=== PATIENT | male | born 1955 | race Caucasian/White ===

== ENCOUNTER 2016-10-05 23:00 | Inpatient (IN) ==
--- NOTE | 2016-10-05 23:48 | PROVIDER DOCUMENTATION ---
HPI-Chest Pain - General Source: patient - History of Present Illness-CP Location: reports: substernal Severity in ED: severe Onset/Duration: just prior to arrival Timing: still present Associated Symptoms: reports: shortness of breath, weakness. denies: abdominal pain, back pain, diaphoresis, dizziness, edema, fatigue, fever/chills, headache , heartburn, nausea, rash, syncope, vomiting Nitro Today/Relief: 0.4 mg x 3, provided by EMS Aspirin Treatment Today: 325 mg x 1, provided by EMS Prior Chest Pain/Cardiac Workup: reports: cardiac cath Similar Symptoms Previously?: Yes Recently Seen Here or By Another Healthcare Provider: Yes <Germain Oneill - Last Filed: 10/06/16 00:58> <Sage Ferreira - Last Filed: 10/06/16 01:12> - General Chief Complaint: Chest Pain Stated Complaint: CP, d/c from for NSTEMI yesterday Time Seen by Provider: 10/05/16 23:30 Allergies/Adverse Reactions: Patient Allergies Allergy/AdvReac Type Severity Reaction Status Date / Time No Known Allergies Allergy Verified 10/05/16 23:00 Home Medications: Home Medication List Medication Instructions Recorded Confirmed Last Taken Type Citalopram Hydrobromide [Celexa] 10 mg PO HS 04/24/13 10/05/16 07/31/15 21:00 History Insulin Glargine [Lantus] 50 unit SUBQ QHS 04/24/13 10/05/16 07/31/15 21:00 History Aspirin [Melvin Chewable Aspirin] 81 mg PO DAILY #0 tab.chew 04/01/14 10/05/16 09:00 Rx Atorvastatin Calcium [Lipitor] 80 mg PO BID 10/05/16 10/05/16 Unknown History Furosemide [Lasix] 40 mg PO DAILY 10/05/16 10/05/16 Unknown History Lisinopril [Zestril] 5 mg PO DAILY 10/05/16 10/05/16 Unknown History Metoprolol [Lopressor] 50 mg PO BID 10/05/16 10/05/16 Unknown History Polyethylene Glycol 3350 [Miralax] 1 pkg PO DIRECTED 10/05/16 10/05/16 Unknown History Tamsulosin [Flomax] 0.4 mg PO QHS 10/05/16 10/05/16 Unknown History - History of Present Illness-CP Nature of Presenting Problem: Pt is a 61 yom who presents to ER via EMS with CC of chest pain. Pt reports that he was discharged yesterday from [facility] for a non-STEMI, after being transferred there on the for a STEMI. Pt reports that, on exam , his pain is 7/10. (Germain Oneill) Review of Systems - Adult - REVIEW OF SYSTEMS - ADULT Constitutional: reports: fatique. denies: chills, fever, night sweats, weight gain, weight loss Eyes: reports: no symptoms reported Ears, Nose, Mouth & Throat: reports: no symptoms reported Cardiovascular: reports: chest pain. denies: edema, heart murmur, irregular heart rate, orthopnea, palpitations, poor circulation, PND, syncope Respiratory: reports: shortness of breath, wheezing. denies: chronic cough, cough, dyspnea on exertion, excessive sputum production, hemoptysis, pleurisy Gastrointestinal: reports: no symptoms reported Genitourinary: reports: no symptoms reported Musculoskeletal: reports: no symptoms reported Integumentary: reports: no symptoms reported Neurological: reports: no symptoms reported Psychiatric: reports: no symptoms reported Endocrine: reports: no symptoms reported Hematologic/Lymphatic: reports: no symptoms reported Allergic/Immunologic: reports: no symptoms reported All Other Systems: Reviewed and Negative <Germain Oneill - Last Filed: 10/06/16 00:58> Past History - Adult - PAST MEDICAL HISTORY-ADULT Review of Records: reports: Nursing Assessment Review, Medications Reviewed Cardiovascular: reports: CAD, HTN, heart valve problem, hyperlipidemia Respiratory: reports: bronchitis Genitourinary: reports: kidney stones Musculoskeletal: reports: arthritis Psychiatric: reports: anxiety, depression Endocrine/Immune: reports: Diabetes - PRIOR SURGERIES/PROCEDURES Surgical/Procedure History: reports: CABG, back/neck, other (pt had heart cath ) - IMMUNIZATION STATUS Childhood Immunizations: See Nurse Assessment Flu Vaccine: See Nurse Assessment <Germain Oneill - Last Filed: 10/06/16 00:58> Physical Exam-General - PHYSICAL EXAM-ADULT Initial Vital Signs Reviewed: Yes - CONSTITUTIONAL General Appearance: appears well, alert, moderate distress, lethargic, slow to respond. negative: no apparent distress, mild distress, severe distress, cachetic, obese, thin, anxious, obtunded, combative - RESPIRATORY Respiratory: chest non-tender, lungs clear, normal breath sounds, wheezing (mild ). negative: respiratory distress, decreased breath sounds, accessory muscle use - CARDIOVASCULAR Cardiovascular: normal peripheral pulses, regular rate, rhythm. negative: bradycardia, tachycardia, diastolic murmur, systolic murmur, irregularly irregular - GASTROINTESTINAL (ABDOMEN) Abdominal Exam: normal bowel sounds, non tender, soft. negative: distended, guarding, tenderness - NEUROLOGIC Neurologic: grossly normal, no motor/sensory deficits. negative: facial droop, focal weakness, motor weakness, sensory deficit - PSYCHIATRIC Psych/Mental Status: normal thought content, normal thought process, oriented x 3, disheveled, depressed affect <Germain Oneill - Last Filed: 10/06/16 00:58> Progress - EKG 1 Time of EKG reading by physician:: 21:32 EKG Read and Signed by:: Sage Ferreira EKG Interpretation (*Must complete 3 of following elements*): Abnormal (Low voltage QRS) Rate: 105 Rhythm: Sinus tachycardia 2 Time of EKG reading by physician:: 22:56 EKG Read and Signed by:: Sage Ferreira EKG Interpretation (*Must complete 3 of following elements*): Abnormal ( Rightward axis; Nonspecific ST & T wave abnormality) Rate: 94 Rhythm: Normal sinus rhythm - CONSULTS/PCP/HOSPITALIST Notification #1 *Consult/PCP/Hospitalist*: Dr. Alcaraz ([facility]) Time Discussed: 00:47 Consult Disposition: other (Recommended for Dr. Ferreira to admit pt here) #2 Consult: Dr. Yoo (Hospitalist) Time Discussed: 00:58 Consult Disposition: Admit <Germain Oneill - Last Filed: 10/06/16 00:58> <Sage Ferreira - Last Filed: 10/06/16 01:12> - PLAN OF CARE/RESULTS Progress/Plan/Lab Results: [facility] paged at [phone] [facility] recommended to admit pt for obs here. Vital Signs - 24 hr 10/05/16 23:06 Temperature 99.5 F Pulse Rate 94 H Respiratory 20 Rate Blood Pressure 112/76 O2 Sat by Pulse 94 L Oximetry Orders Category Date Time Status Cardiac Monitoring DIRECTED Care 10/05/16 23:16 Active Saline Loc NOW Care 10/05/16 23:16 Active CHEST-PORTABLE [RAD] Stat Exams 10/05/16 23:39 Taken CBC WITH ELECTRONIC DIFF [HEME] Stat Lab 10/05/16 23:11 Completed CK PROFILE [SP CHEM] Stat Lab 10/05/16 23:11 Completed COMPREHENSIVE METABOLIC PANEL [CHEM] Stat Lab 10/05/16 23:11 Completed D-DIMER [CHEM] Stat Lab 10/05/16 23:11 Completed MAGNESIUM [CHEM] Stat Lab 10/05/16 23:11 Completed PRO B-NATRIURETIC PEPTIDE Stat Lab 10/05/16 23:11 Completed PROTIME WITH INR [COAG] Stat Lab 10/05/16 23:11 Completed PTT [COAG] Stat Lab 10/05/16 23:11 Completed TROPONIN T Stat Lab 10/05/16 23:11 Completed Morphine Med 10/05/16 23:51 Discontinued 4 mg IV NOW ONE Nitroglycerin Med 10/05/16 23:51 Discontinued 1 inch TOP NOW ONE EKG [EKG] Stat Ther 10/05/16 22:50 Ordered Laboratory Tests 10/05/16 10/05/16 10/05/16 23:11 23:11 23:11 WBC 9.72 RBC 4.12 L Hgb 12.4 L Hct 37.7 L MCV 91.5 MCH 30.1 MCHC 32.9 L RDW Std Deviation 14.8 H Plt Count 265 MPV 12.7 H Immature Gran % (Auto) 0.3 Neut % (Auto) 63.3 Lymph % (Auto) 20.2 L [place] % (Auto) 15.1 H Eos % (Auto) 0.7 Baso % (Auto) 0.4 Immature Gran # (Auto) 0.03 Neut # (Auto) 6.15 Lymph # (Auto) 1.96 [place] # (Auto) 1.47 H Eos # (Auto) 0.07 Baso # (Auto) 0.04 PT INR PTT (Actin FS) D-Dimer 0.86 H Sodium 133 L Potassium 4.2 Chloride 94 L Carbon Dioxide 28 Anion Gap 11 BUN 20 Creatinine 0.9 Estimated GFR/1.73 m2 > 60 BUN/Creatinine Ratio 22 Glucose 296 H Calculated Osmolality 280 Calcium 8.4 L Magnesium 1.8 Total Bilirubin 0.38 AST 17 ALT 17 Alkaline Phosphatase 89 Creatine Kinase 63 Troponin T [id number]-Ffysogvzttq Pept Total Protein 6.0 L Albumin 2.9 L Globulin 3.1 Albumin/Globulin Ratio 0.9 10/05/16 10/05/16 10/05/16 23:11 23:11 23:11 WBC RBC Hgb Hct MCV MCH MCHC RDW Std Deviation Plt Count MPV Immature Gran % (Auto) Neut % (Auto) Lymph % (Auto) [place] % (Auto) Eos % (Auto) Baso % (Auto) Immature Gran # (Auto) Neut # (Auto) Lymph # (Auto) [place] # (Auto) Eos # (Auto) Baso # (Auto) PT 12.1 H INR 1.14 PTT (Actin FS) 29.7 D-Dimer Sodium Potassium Chloride Carbon Dioxide Anion Gap BUN Creatinine Estimated GFR/1.73 m2 BUN/Creatinine Ratio Glucose Calculated Osmolality Calcium Magnesium Total Bilirubin AST ALT Alkaline Phosphatase Creatine Kinase Troponin T 1.200 H* [id number] Pept 5655 H Total Protein Albumin Globulin Albumin/Globulin Ratio (Germain Oneill) Departure <Germain Oneill - Last Filed: 10/06/16 00:58> - Departure Time of Disposition Order: 01:11 Certified Medical Emergency: Emergent <Sage Ferreira - Last Filed: 10/06/16 01:12> - Departure DIAGNOSIS: Chest pain in adult Disposition: ADMITTED INPATIENT 09 Condition: Fair Attestation - Scribe Verification/Attestation Scribe:: Germain Oneill Acting as Scribe for:: Sage Ferreira Scribe documention review:: This chart was documented by a scribe and accurately reflects the service the provider performed and the decisions made by the provider. <Germain Oneill - Last Filed: 10/06/16 00:58> Physician Attestation
[2016-10-05] MEDS ORDERED: NITROGLYCERIN TOP ONE (23:51)
[2016-10-05] MEDS ORDERED: MORPHINE IV ONE (23:51)
[2016-10-06 00:29] LABS: MANUAL DIFF NEEDED? NO
[2016-10-06 00:31] LABS: BASO% 0.4 % (0.0-0.8); EOS# 0.07 X1000 (0.0-0.7); EOS% 0.7 % (0.0-10.0); HEMATOCRIT 37.7 % (42.0-52.0); HEMOGLOBIN 12.4 g/dL (14.0-18.0); IMM GRAN# 0.03 X1000 (0.0-0.04); IMM GRAN% 0.3 % (0.0-0.5); LYMPH# 1.96 X1000 (1.2-3.4); LYMPH% 20.2 % (20.5-51.1); MCH 30.1 PG (27-31); MCHC 32.9 g/dL (33-37); MCV 91.5 FL (81-99); MONO# 1.47 X1000 (0.11-0.59); MONO% 15.1 % (1.7-9.3); MPV 12.7 FL (7.4-10.4); NEUT% 63.3 % (42.2-75.2); PLT 265 X1000 (130-400); RBC 4.12 XMIL (4.7-6.1)
[2016-10-06 00:42] LABS: INR 1.14; PROTIME 12.1 Seconds (9.2-11.7); PTT 29.7 Seconds (22.0-36.0)
[2016-10-06 00:45] LABS: AGAP 11; ALBUMIN 2.9 g/dL (3.5-5.0); ALKALINE PHOSPHATASE 89 U/L (32-122); BUN 20 mg/dL (8-22); CALCIUM 8.4 mg/dL (8.8-10.2); CHLORIDE 94 mmol/L (98-107); CK PROFILE 63 U/L (24-204); COSMO 280; GOT 17 U/L (10-34); GPT 17 U/L (10-44); MAGNESIUM 1.8 mg/dL (1.5-2.7); POTASSIUM 4.2 mmol/L (3.5-5.1); SODIUM 133 mmol/L (136-145); TCO2 28 mmol/L (25-35); TOTAL BILIRUBIN 0.38 mg/dL (0.20-1.00)
[2016-10-06] MEDS ORDERED: LASIX IV ONE (01:28)
[2016-10-06] MEDS ORDERED: TYLENOL PO PRN (01:31)
[2016-10-06] MEDS ORDERED: PLAVIX PO ONE (01:34)
[2016-10-06] MEDS ORDERED: LOVENOX SUBQ SCH (01:45)
--- NOTE | 2016-10-06 04:12 | HISTORY AND PHYSICAL ---
CHIEF COMPLAINT: Chest pain. PRIMARY CARE PROVIDER: Sunil Vang MD. HISTORY OF PRESENT ILLNESS: This is a 61-year-old male who presented to the emergency room with complaint of chest pain. He was recently discharged from [facility] on Saturday, I believe, for non-STEMI. He complained of 7/10 left-sided chest pain that did not radiate into his neck, back, jaw or arm. He did not have any associated symptoms such as nausea and vomiting, syncope, PND, orthopnea. He did report mild shortness of breath after arriving to the emergency room and was noted as having wheezing on my assessment. Chest x-ray was obtained in the ER which shows increased pulmonary vascular markings consistent with fluid volume overload. Laboratory data was obtained. Patient's troponins were elevated. Dr. Rowley with the [facility] was contacted by the ER provider, Dr. Ferreira. He recommended admission here for his medications to be maximized. He will be admitted to CICU for further evaluation and treatment. PAST MEDICAL HISTORY: Obtained primarily from previous medical charting as the patient is a very poor historian. 1. Hypertension. 2. Coronary artery disease status post CABG in 2008 with recent myocardial infarction this previous week for which there was no stenting performed. 3. Diabetes mellitus type 2, now insulin dependent, poorly controlled. 4. Hyperlipidemia. 5. Chronic pain secondary to sternal incision from bypass. 6. Previous CVA. 7. Depression. PREVIOUS SURGICAL HISTORY: 1. CABG. 2. Cervical neck fusion. 3. Bilateral carotid endarterectomy. 4. Cardiac catheterization. SOCIAL HISTORY: Quit smoking in 2007. He was a 1 pack of cigarettes per day smoker for roughly 15 years. Denies illicit drug use or abuse or alcohol use. He is , lives in [place]. He is disabled. FAMILY HISTORY: Father is from congestive heart failure. Mother from cancer. A brother with myocardial infarction. ALLERGIES: No known drug allergies. HOME MEDICATIONS: 1. Lantus 50 units subcutaneously at bedtime. 2. Celexa 10 mg p.o. at bedtime. 3. Aspirin 81 mg p.o. daily. 4. Lipitor 80 mg p.o. daily. 5. Flomax 0.4 mg p.o. at bedtime. 6. MiraLAX 17 g p.o. p.r.n. 7. Lasix 40 mg p.o. daily. 8. Lisinopril 5 mg p.o. daily. 9. Metoprolol 50 mg p.o. b.i.d. REVIEW OF SYSTEMS: Fourteen point review of systems conducted with the patient. Pertinent positives listed above in the HPI. All other systems negative. PHYSICAL EXAMINATION: VITAL SIGNS: Temperature 99.5 degrees, pulse 94, respirations 20, blood pressure 112/76, oxygen saturation 94% on 4 L nasal cannula. GENERAL: Slow to respond 61-year-old male lying in the ER stretcher. No acute distress. HEENT: Head is atraumatic, normocephalic. Pupils equal, round, reactive to light. Extraocular eye movement intact. Sclerae is anicteric. Conjunctivae is pink. Oral mucosa is moist. NECK: Supple. No JVD noted. Scarring related to bilateral carotid endarterectomy was noted. No carotid bruit on auscultation. CHEST: Symmetrical rise and fall with respirations. Patient is mildly tachypneic. No accessory muscle use. Crackles noted in bilateral bases with mild expiatory wheezing. No rhonchi. No rales. CARDIOVASCULAR: S1, S2 appreciated. Regular rhythm. 1/6 systolic ejection murmur noted. ABDOMEN: Protuberant, soft, nondistended, nontender. Bowel sounds hypoactive all 4 quadrants. No pulsatile mass. No organomegaly could be palpated. EXTREMITIES: No clubbing, cyanosis, or edema. 1+ pedal pulses bilaterally. GENITOURINARY: The patient voids. Otherwise deferred. NEUROLOGICAL: Patient is slow to respond, however, answers all questions appropriately. He is alert and oriented x4. No focal deficits noted. DIAGNOSTIC DATA: Chest x-ray shows increased pulmonary vascular markings. LABORATORY DATA: WBC 9.72, hemoglobin 12.4, hematocrit 37.7, platelet count 265,000. PT 12.1, INR 1.14. D-dimer 0.86. Sodium 133, potassium 4.2, chloride 94, carbon dioxide 28, BUN 20, creatinine 0.9, glucose 296. Troponin 1.200. CK is 63. ProBNP 5655. ASSESSMENT AND PLAN: 1. Chest pain with elevated troponin. Admit patient to CICU. Consult Cardiology. Trend cardiac enzymes. Continue beta blockers, RODNEY inhibitor. Start patient on Plavix 75 mg p.o. daily. We will use aspirin 325 mg daily at this time as patient does not have a noted history of bleeding. 2. Pulmonary edema. Unsure of patient's ejection fraction. Medical charting has been requested from [facility] from previous admission. We will give Lasix 40 mg IV now and then continue 40 mg IV q.12 hours. 3. Diabetes mellitus type 2, now insulin dependent, poorly controlled. Place patient on q.4 hour fingersticks with sliding scale moderate dose. Check hemoglobin A1c. 4. Hyperlipidemia. Continue statin at current dose. 5. Coronary artery disease. We will maximize medications. 6. Depression. Continue SSRI. Further recommendations per patient clinical course. Dictated by JASON Levine for Leelee Yoo MD
[2016-10-06 06:48] LABS: HEMOGLOBIN A1C 11.3 % (4.8-6.0)
[2016-10-06] MEDS ORDERED: LASIX PO SCH (09:00)
[2016-10-06] MEDS ORDERED: ATORVASTATIN CALCIUM 80 MG PO SCH (09:00)
[2016-10-06] MEDS ORDERED: ASPIRIN PO SCH ×2 (09:00)
[2016-10-06] MEDS ORDERED: PRINIVIL PO SCH (09:00)
[2016-10-06] MEDS ORDERED: LOPRESSOR PO SCH (09:00)
[2016-10-06 10:05] LABS: AGAP 11; BUN 20 mg/dL (8-22); CALCIUM 7.7 mg/dL (8.8-10.2); CHLORIDE 94 mmol/L (98-107); COSMO 273; POTASSIUM 4.2 mmol/L (3.5-5.1); SODIUM 133 mmol/L (136-145); TCO2 28 mmol/L (25-35)
[2016-10-06] MEDS: HUMALOG SUBQ SCH ×3 (10:21→23:53)
--- NOTE | 2016-10-06 11:26 | Diag Imaging Result Document ---
PROCEDURE NAME: CHEST-PORTABLE - 10/05/2016 PORTABLE CHEST: COMPARISON: 03/29/2014. FINDINGS: There is mild cardiomegaly. There are sternal wires from previous surgery again seen. There is vascular congestion. There is alveolar edema at the right base and possibly at the left base. There are probable small bilateral pleural effusions. There is no pneumothorax seen. IMPRESSION: Findings suggestive of pulmonary edema/congestive heart failure.
[2016-10-06] MEDS: PLAVIX PO SCH (11:36)
[2016-10-06] MEDS: PRILOSEC PO SCH (11:38)
[2016-10-06] MEDS: LIPITOR PO SCH (13:07)
[2016-10-06] MEDS: LASIX IV SCH ×2 (13:07→20:32)
--- NOTE | 2016-10-06 14:45 | CONSULTATION ---
DATE OF CONSULTATION: 10/06/2016 REQUESTING SERVICE: Hospitalist service. REASON FOR CONSULTATION: Chest discomfort, shortness of breath. HISTORY: Mr. Epperson is an unfortunate 61-year-old gentleman who presented to the emergency room as a transfer from the [facility] where he had been staying for a couple of nights. The patient apparently started to complain of chest discomfort and also appeared to be more short of breath. They brought him to the ER at about 11:00 p.m. or so. They did a chest x-ray that showed pulmonary edema. They checked cardiac enzymes. CK was 63, troponin 1.20, subsequently 1.17. ProBNP was elevated at 5655. Sodium 133. Potassium was 4.2. His white count was 9720. They gave him Lasix, oxygen, and they have been admitted him for further management. I am seeing the patient about 12 noon. He is not having any distress. He is not having any ongoing chest pain. However, he is having audible wheezing. PAST MEDICAL HISTORY: His past history is significant for severe coronary heart disease. About 09/27/2016, he presented to the Emergency Room Department with significant chest pains. He had been there two days prior with complaints of body aches and not feeling well. At any rate, they made a diagnosis of acute coronary syndrome and they sent the patient to [place] that same day, 09/27/2016. He underwent an emergency heart catheterization at [facility] on 09/27/[address] Sunil Abad, which revealed a complete occlusion of a degenerated vein graft that appears to go to the lateral wall. His mammary artery graft to LAD was patent. His circumflex system was diffusely and severely diseased. Right coronary artery was totally occluded. An echocardiogram was done at that time, and it shows relatively preserved ejection fraction in the order of 45% to 50%. However, he has severe diastolic dysfunction noted on that particular echocardiogram. At any rate, they stabilized the patient for two or three days, and eventually they sent him to the rehabilitation facility for further management. He does have history of hypertension. He has had a previous stroke, and the stroke apparently was very disabling. Since then, he has had difficulties with speech. He became depressed. He had some weakness on the right side of his body. He also has diabetes mellitus type 2, which has not been well controlled. PAST SURGICAL HISTORY: Positive for previous coronary bypass procedure in 2008. He has had bilateral carotid endarterectomy performed at the [facility] in [place] during the course of the year 2015 or 2016. They did both carotids.Prior to doing the carotids they did a follow up [facility] which showed degenerated SVG to OM. He has had cervical fusion. SOCIAL HISTORY: He has been a smoker for many years, and he had been smoking lately up until the time of his recent heart attack. He is to his for about 20 years or so. He has children from a previous marriage. 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 He had to go on disability because of multiple body ailments. FAMILY HISTORY: Family history is really noncontributory for the purposes of this admission. ALLERGIES: Negative. HOME MEDICATIONS: His home medications listed at the time of this admission included aspirin 81 daily, atorvastatin 80 mg daily, Celexa 10 mg daily, furosemide 40 daily, insulin glargine, Lantus 50 units at bedtime, Zestril 5 mg daily, metoprolol 50 twice a day, MiraLAX one package as directed, and Flomax 0.4 mg at bedtime. REVIEW OF SYSTEMS: In general, his functional capacity is markedly impaired. He does not do much according to the . He appears to be depressed. His speech is very compromised at times. At other times, it appears to be adequate. He has had issues with some dyspnea in the past and wheezing. He has had intermittent bouts of chest pains over the course of the past few weeks. No other major positives. PHYSICAL EXAMINATION: Vital signs: Blood pressure is 93/65, temperature 98.3, pulse 81, respirations 18. General: He is awake, alert, oriented. HEENT: Unremarkable. He does have scars in both sides of the neck. Chest: Chest shows diminished breath sounds diffusely with end expiratory wheezes. Cardiovascular: Heart sounds are regular, rhythmic. No gallop or murmur. Abdomen: Obese, nontender. No masses or hepatomegaly. Extremities: Extremities show markedly diminished pulses bilaterally. Neurological exam: He has some low pitch voice with some subtle dysarthria. He lacks spontaneity in his speech. His mood is kind of depressed. I cannot elicit any definite weakness on either side of his body. LABORATORY: His chest x-ray shows pulmonary edema. His EKG showed no acute ischemic changes. IMPRESSION: 1. Patient presenting with increasing dyspnea and chest discomfort approximately 10 days after having a ase-HC-ifukzkeaf myocardial infarction. He has had progression of disease. 2. Acute pulmonary edema. This is cardiogenic and probably related to ischemic cardiomyopathy.Systolic + diastolic heart failure acute on chronic. He may have ischemic valvular heart disease contributing to this. 3. Previous carotid artery surgery bilaterally. Previous stroke. 4. Poorly controlled diabetes mellitus. His hemoglobin A1c is unfortunately 11.3, which is an indicator of poor control. 5. He might be nutritionally compromised. His albumin is 2.9. 6. History of hyperlipidemia. 7. Suspect depression. RECOMMENDATION: From cardiology view point, we are going to keep him on diuretics. We may want to add low-dose digoxin. We will probably consider low-dose RODNEY inhibitors. He will continue aspirin and lisinopril. His overall prognosis is very guarded because of his general poor functional status. Will follow him closely. ANGEL
[2016-10-06] MEDS: LOVENOX SUBQ SCH (15:39)
[2016-10-06] MEDS: LOPRESSOR PO SCH ×2 (15:39→20:33)
[2016-10-06] MEDS: LANOXIN IV SCH (20:32)
[2016-10-06] MEDS: CELEXA PO SCH (20:33)
[2016-10-06] MEDS: ALDACTONE PO SCH (20:33)
[2016-10-06] MEDS: CAPOTEN PO SCH (20:33)
[2016-10-06] MEDS: FLOMAX PO SCH (20:34)
[2016-10-06] MEDS ORDERED: COREG PO SCH (21:00)
[2016-10-06 21:08] LABS: URINE CULTURE NEEDED? NO; URINE MICRO REVIEW NEEDED? NO; URINE SOURCE CATH
[2016-10-06 21:12] LABS: BILIRUBIN URINE NEGATIVE (NEGATIVE); BLOOD URINE NEGATIVE (NEGATIVE); COLOR YELLOW; GLUCOSE URINE 500 mg/dL (NEGATIVE); LEUKOCYTES URINE NEGATIVE (NEGATIVE); NITRITE URINE NEGATIVE (NEGATIVE); PH URINE 5.5; PROTEIN URINE NEGATIVE (NEGATIVE); SP GRAVITY URINE 1.017; TURBIDITY URINE CLEAR (CLEAR); UROBILINOGEN URINE NORMAL (NORMAL)
[2016-10-06 21:13] LABS: UR EPITHELIAL CELLS <10 /HPF (<10); URINE BACTERIA NEGATIVE /HPF; URINE RBC <10 /HPF (<10); URINE WBC <10 /HPF (<10)
[2016-10-06] MEDS: LANTUS SUBQ SCH (23:53)
[2016-10-07] MEDS: HUMALOG SUBQ SCH ×7 (00:17→21:37)
[2016-10-07] MEDS: LOVENOX SUBQ SCH ×2 (03:38→15:52)
[2016-10-07] MEDS: LANOXIN IV SCH ×3 (03:38→15:52)
[2016-10-07] MEDS: LOPRESSOR PO SCH ×4 (03:39→21:36)
[2016-10-07 05:26] LABS: MANUAL DIFF NEEDED? NO
[2016-10-07 05:29] LABS: BASO% 0.4 % (0.0-0.8); EOS# 0.11 X1000 (0.0-0.7); EOS% 1.2 % (0.0-10.0); HEMATOCRIT 36.7 % (42.0-52.0); HEMOGLOBIN 11.8 g/dL (14.0-18.0); LYMPH# 1.95 X1000 (1.2-3.4); MCH 29.7 PG (27-31); MCHC 32.2 g/dL (33-37); MCV 92.4 FL (81-99); MONO# 1.34 X1000 (0.11-0.59); MONO% 14.4 % (1.7-9.3); MPV 11.6 FL (7.4-10.4); PLT 242 X1000 (130-400); RBC 3.97 XMIL (4.7-6.1)
[2016-10-07 06:01] LABS: AGAP 11; BUN 21 mg/dL (8-22); CALCIUM 8.2 mg/dL (8.8-10.2); CHLORIDE 94 mmol/L (98-107); COSMO 272; HDL 33 mg/dL (35-55); LDL 90 mg/dL; POTASSIUM 3.8 mmol/L (3.5-5.1); SODIUM 135 mmol/L (136-145); TCO2 30 mmol/L (25-35); TRIGLYCERIDES 55 mg/dL (39-160); VLDL 11 mg/dL
[2016-10-07] MEDS: PRILOSEC PO SCH (06:23)
[2016-10-07] MEDS: CAPOTEN PO SCH ×3 (06:23→21:36)
[2016-10-07] MEDS: LASIX IV SCH ×2 (08:08→21:35)
[2016-10-07] MEDS: PLAVIX PO SCH (08:08)
[2016-10-07] MEDS: ASPIRIN PO SCH (08:08)
[2016-10-07] MEDS: ALDACTONE PO SCH (08:08)
[2016-10-07] MEDS: LIPITOR PO SCH (08:08)
--- NOTE | 2016-10-07 09:55 | PROGRESS NOTE ---
DATE: 10/07/2016 CHIEF COMPLAINT: Shortness of breath, chest discomfort. SUBJECTIVE: Mr. Epperson is feeling generally better today. He is eating breakfast. He is not in any distress. OBJECTIVE: Blood pressure is 110/69, temperature 98.1, pulse 87, respirations 18. General: He is awake, alert, oriented, in no distress. HEENT: Slight prominence of the . Chest: Diffusely diminished breath sounds at the bases. No definite rhonchi or rales. Cardiac: Heart sounds are regular, rhythmic. He does have a 3rd heart sound. There is a soft systolic murmur. Abdomen: Obese, nontender. Extremities: Show no significant edema. He does have some weakness on the right side of his body. DIAGNOSTIC DATA: Blood work today, white count is 9290, hemoglobin 11.8, hematocrit 36.7, sodium 135, potassium 3.8, BUN 21, creatinine 0.8. His cholesterol total is 134, LDL 90, HDL is 33, triglycerides 55. IMPRESSION: 1. Patient presented with acute pulmonary edema secondary to systolic and diastolic heart failure. He does have progression of severe coronary heart disease. 2. History of previous stroke. 3. Hyperlipidemia. RECOMMENDATIONS: At this point in time, we will continue to adjust his medications. Clinically, he seems to be a little better. I will probably suggest to continue all the medicines as outlined yesterday. We have him on captopril 6.25 every 8 hours, digoxin 0.125 daily, spironolactone 12.5 daily, atorvastatin 80 daily, metoprolol 12.5 every 6 hours, aspirin 81 mg daily, clopidogrel 75 mg daily. Other interventions will depend on his clinical course. I will get a followup chest x-ray in the morning. Thank you for the opportunity to participate in this evaluation.
--- NOTE | 2016-10-07 11:17 | PROGRESS NOTE ---
DATE: 10/07/2016 SUBJECTIVE: The Patient denies any shortness of breath, any chest pain or chest discomfort, fever, or chills. OBJECTIVE: Vital Signs: Temperature 98.1 degrees, heart rate 82, respiratory rate 18, blood pressure 110/69, O2 saturation 94% on 3 L nasal cannula. General Examination: This is an chronically ill-looking and frail, 61-year-old, male, lying in bed, in no acute distress. HEENT: Head is normocephalic and atraumatic. Anicteric sclerae and pale conjunctivae. Mucous membranes moist. Neck: Supple. No JVD noted. No carotid bruits. No lymphadenopathy. No thyromegaly. Cardiovascular Examination: S1 and S2 heard. No murmurs, gallops, or rubs. Regular rate and rhythm. Respiratory Examination: Crackles in both bases still present. Patient is not using any accessory muscles or having work of breathing. Abdomen: Soft, nontender to palpation, nondistended. Bowel sounds present. No organomegaly. Extremities: No clubbing, cyanosis, or edema. Peripheral pulses present in both legs. Neurological Examination: Patient is alert and oriented x3 but is slow to respond. Moves 4 extremities. Laboratory Data: White cell count 9.29, hemoglobin 11.8, hematocrit 36.7, platelets 242,000. BMP unremarkable. Last troponin 1.3 from yesterday. ASSESSMENT: 1. Recent non-ST elevation myocardial infarction. 2. Systolic and diastolic congestive heart failure. 3. Acute pulmonary edema. 4. Uncontrolled diabetes mellitus type 2. 5. Hyperlipidemia. 6. Coronary artery disease. 7. Depression. PLAN: The patient was admitted to the hospital for episodes of chest pain. Patient recently discharged from [facility] for non ST-segment elevation myocardial infarction. At this time, the troponins started to go up again. Cardiology has been consulted. They are following this patient closely. At this point, the patient will receive medical management only. They are not planning to repeat catheterization but repeat echocardiogram. By now, he has been started on Lasix, captopril, metoprolol, spironolactone. The blood pressure is borderline between 100 and 110 systolic blood pressure but if the blood pressure started to go down, probably we may need to transfer him to the intensive care unit and start vasodepressor. Unfortunately, diabetes mellitus is really bad controlled with hemoglobin A1c of 11. Now we will continue with the sliding scale insulin. We will continue monitoring this patient very closely in the [facility].
[2016-10-07] MEDS: FLOMAX PO SCH (21:36)
[2016-10-07] MEDS: CELEXA PO SCH (21:36)
[2016-10-07] MEDS: LANTUS SUBQ SCH (21:37)
[2016-10-08] MEDS: HUMALOG SUBQ SCH ×6 (03:01→22:07)
[2016-10-08] MEDS: LOPRESSOR PO SCH ×4 (04:00→22:06)
[2016-10-08] MEDS: CAPOTEN PO SCH ×3 (04:00→22:05)
[2016-10-08] MEDS: LOVENOX SUBQ SCH ×2 (04:00→15:52)
[2016-10-08 05:45] LABS: AGAP 12; BUN 16 mg/dL (8-22); CALCIUM 8.3 mg/dL (8.8-10.2); CHLORIDE 94 mmol/L (98-107); COSMO 276; MAGNESIUM 1.7 mg/dL (1.5-2.7); SODIUM 137 mmol/L (136-145); TCO2 31 mmol/L (25-35)
[2016-10-08] MEDS: PRILOSEC PO SCH (06:16)
--- NOTE | 2016-10-08 09:15 | EKG Report ---
Test Performed on : 10/05/2016 10:56:09 PM Test Reason : CP Blood Pressure : / mmHG Vent. Rate : 094 BPM Atrial Rate : 094 BPM P-R Int : 138 ms QRS Dur : 094 ms QT Int : 350 ms P-R-T Axes : 046 097 102 degrees QTc Int : 437 ms Normal sinus rhythm. Rightward axis Nonspecific ST and T wave abnormality Abnormal ECG When compared with ECG of 05-OCT-2016 22:55, (Unconfirmed) QT has shortened Unconfirmed Result
[2016-10-08] MEDS: PLAVIX PO SCH (09:22)
[2016-10-08] MEDS: ASPIRIN PO SCH (09:22)
[2016-10-08] MEDS: LIPITOR PO SCH (09:22)
[2016-10-08] MEDS: ALDACTONE PO SCH (09:23)
[2016-10-08] MEDS: LANOXIN PO SCH (09:23)
[2016-10-08] MEDS: LASIX IV SCH ×2 (09:23→22:05)
[2016-10-08] MEDS: MIRALAX PO SCH (09:23)
--- NOTE | 2016-10-08 09:57 | Diag Imaging Result Document ---
PROCEDURE NAME: CHEST-2 VIEWS - 10/08/2016 TWO VIEWS OF THE CHEST: FINDINGS: There are pleural effusions bilaterally. The pulmonary edema which was present on 10/05/2016 has largely resolved. IMPRESSION: Bilateral pleural effusions.
--- NOTE | 2016-10-08 10:36 | EKG Report ---
Test Performed on : 10/08/2016 09:51:57 AM Test Reason : arrhythmia Blood Pressure : / mmHG Vent. Rate : 085 BPM Atrial Rate : 085 BPM P-R Int : 142 ms QRS Dur : 096 ms QT Int : 434 ms P-R-T Axes : 058 057 -24 degrees QTc Int : 516 ms Normal sinus rhythm. Low voltage QRS Nonspecific T wave abnormality Prolonged QT Abnormal ECG When compared with ECG of 05-OCT-2016 22:56, (Unconfirmed) QT has lengthened Confirmed by Jennifer MOREL, Cristian Cantu ([id number]) on 10/08/2016 4:27:26 PM
--- NOTE | 2016-10-08 10:37 | PROGRESS NOTE ---
DATE: 10/08/2016 CHIEF COMPLAINT: Shortness of breath, chest discomfort. SUBJECTIVE: Mr. Epperson is feeling somewhat better. He is not in any discomfort, he is just lying in bed. He appears to be somewhat depressed. OBJECTIVE: Blood pressure today is 113/66, temperature 98.9, pulse 84, respirations 12. He is awake, follows commands. HEENT is unremarkable. Chest: Clear to auscultation and percussion. Heart sounds are regular and rhythmic. No gallop or murmur is noted. Abdomen is nontender. Extremities showed no obvious edema. DIAGNOSTIC DATA: His blood work today shows sodium 137, potassium 4.0, BUN is 16, creatinine 0.7. IMPRESSION: 1. 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 2. Previous stroke. 3. Poorly controlled diabetes mellitus. RECOMMENDATIONS: At this point in time, we will continue supportive therapy. Chest x-ray has been requested. We will see what it shows, and we will take it from there. At this time, he is presently being treated with spironolactone, digoxin, captopril, aspirin and metoprolol. We will see how he does over the course of the next couple of days, and then we will make a decision as far as disposition.
--- NOTE | 2016-10-08 14:25 | PROGRESS NOTE ---
DATE: 10/08/2016 SUBJECTIVE: The patient reports no chest pain. No shortness of breath. No fever or chills. OBJECTIVE: Vital Signs: Temperature 98.9 degrees, heart rate 86, respiratory rate 12, blood pressure 113/66, O2 saturation 96% on 93% 3 L nasal cannula. General Examination: This is a chronically ill-looking frail 61-year-old male lying in bed in no acute distress. HEENT: Head is normocephalic, atraumatic. Anicteric sclerae and pale conjunctivae. Mucous membranes moist. Neck: Supple. No JVD noted. No carotid bruits. No lymphadenopathy. No thyromegaly. Cardiovascular Exam: S1-S2 heard, no murmurs, gallops, or rubs. Regular rate and rhythm. Respiratory Exam: Some crackles in both bases still present but less in compared with yesterday. Patient is not using any accessory muscles or having work of breathing. Abdomen: Soft, nontender to palpation. Bowel sounds present. No organomegaly. Extremities: No clubbing, cyanosis, or edema. Peripheral pulses present in both legs. Neurological: Patient is alert and oriented x3 but is slow to respond. Moves 4 extremities. LABORATORY DATA: The BMP is completely unremarkable. ASSESSMENT AND PLAN: 1. Recent non ST-segment elevation myocardial infarction. 2. Systolic and diastolic congestive heart failure. 3. Acute pulmonary edema. 4. Uncontrolled diabetes mellitus type 2. 5. Hyperlipidemia. 6. Coronary artery disease. 7. Depression. Patient had a recent non ST-segment elevation myocardial infarction 10 days ago in [facility] but he was admitted again to the hospital because of episode of chest pain. At this time cardiology has evaluated this patient and they started him on captopril, metoprolol, spironolactone and Lasix and by now he is doing fine. Patient's blood pressure is borderline between 90s and 110. Will continue with the same management. The patient getting Lasix for acute pulmonary edema. Also he will continue with the sliding scale insulin for diabetes mellitus. As per cardiology evaluation they are going to continue with medical management only and a couple days will check with them to see what is the final disposition with this patient that they recommend.
[2016-10-08] MEDS: ZOFRAN IV PRN (17:33)
[2016-10-08] MEDS: FLOMAX PO SCH (22:06)
[2016-10-08] MEDS: CELEXA PO SCH (22:06)
[2016-10-08] MEDS: LANTUS SUBQ SCH (22:08)
[2016-10-09] MEDS: HUMALOG SUBQ SCH ×6 (00:05→21:32)
[2016-10-09] MEDS: LOPRESSOR PO SCH ×4 (02:50→21:32)
[2016-10-09] MEDS: CAPOTEN PO SCH ×3 (05:18→21:32)
[2016-10-09] MEDS: LOVENOX SUBQ SCH ×2 (05:18→17:44)
[2016-10-09 05:43] LABS: AGAP 11; BUN 14 mg/dL (8-22); CALCIUM 8.7 mg/dL (8.8-10.2); CHLORIDE 92 mmol/L (98-107); COSMO 280; MAGNESIUM 1.6 mg/dL (1.5-2.7); POTASSIUM 4.1 mmol/L (3.5-5.1); SODIUM 137 mmol/L (136-145); TCO2 34 mmol/L (25-35)
[2016-10-09] MEDS: PRILOSEC PO SCH (06:05)
--- NOTE | 2016-10-09 07:41 | EKG Report ---
Test Performed on : 10/09/2016 06:34:23 AM Test Reason : arrhythmia Blood Pressure : / mmHG Vent. Rate : 080 BPM Atrial Rate : 080 BPM P-R Int : 150 ms QRS Dur : 094 ms QT Int : 468 ms P-R-T Axes : 052 037 -31 degrees QTc Int : 539 ms Normal sinus rhythm. Low voltage QRS Nonspecific T wave abnormality Abnormal ECG When compared with ECG of 08-OCT-2016 09:51, No significant change was found Confirmed by Jennifer MOREL, Cristian Cantu ([id number]) on 10/09/2016 5:23:45 PM
[2016-10-09] MEDS ORDERED: LANTUS SUBQ SCH (08:30)
[2016-10-09] MEDS: LASIX IV SCH ×2 (09:41→21:32)
[2016-10-09] MEDS: ALDACTONE PO SCH (09:42)
[2016-10-09] MEDS: ASPIRIN PO SCH (09:42)
[2016-10-09] MEDS: LANOXIN PO SCH (09:42)
[2016-10-09] MEDS: PLAVIX PO SCH (09:42)
[2016-10-09] MEDS: LIPITOR PO SCH (09:42)
--- NOTE | 2016-10-09 12:11 | PROGRESS NOTE ---
DATE: 10/09/2016 SUBJECTIVE: Patient reports no chest pain anymore. No fever no chills. No shortness of breath. No nausea or vomiting. OBJECTIVE: Vital Signs: Temperature 99.1 degrees, heart rate 92, respiratory rate 18, blood pressure 107/60, and O2 saturation 91% on 3 L nasal cannula. General Examination: This is a chronically ill-looking and frail, 61-year-old male, lying in bed in no acute distress. HEENT: Head is normocephalic, atraumatic. Anicteric sclerae and pale conjunctivae. Mucous membranes moist. Neck: No JVD noted. No carotid bruits. No lymphadenopathy. No thyromegaly. Cardiovascular exam: S1, S2 heard. No murmurs, gallops, or rubs. Regular rate and rhythm. Respiratory exam: Crackles in both bases still present, but improving in comparing with yesterday. Patient is not using any accessory muscles or having work of breathing. Abdomen: Soft, nontender to palpation. Bowel sounds present. No organomegaly. Extremities: No clubbing, cyanosis, or edema. Peripheral pulses present in both legs. Neurological exam: Patient is alert and oriented x3. Moves 4 extremities. LABORATORY DATA: There is BMP that shows glucose 200. ASSESSMENT: 1. Recent non ST-segment elevation myocardial infarction. 2. Systolic and diastolic congestive heart failure. 3. Acute pulmonary edema. 4. Controlled diabetes mellitus type 2. 5. Hyperlipidemia. 6. Coronary artery disease. 7. Depression. PLAN: The patient is admitted to the hospital because of chest pain. The patient had a recent non ST-segment elevation myocardial infarction ten days ago treated in [facility]. At this time, this patient clinically is doing fine with no chest pain. Cardiology has evaluated this patient and have started him on captopril, metoprolol, spironolactone and Lasix. Clinically as we mentioned before, he is doing fine. Blood pressure is most of the time between 100 and 110. We will continue with the same management. Clinically there are less crackles in both bases. We will continue with the same management. Regarding management of diabetes, glucose fasting is 200, so we will increase the dose of Lantus accordingly. Cardiology as we mentioned before is following, and they are going to let us know what we will do next between tomorrow and the day after depending on how this patient is doing. In the meantime, we will keep this patient in the [facility].
--- NOTE | 2016-10-09 16:28 | PROGRESS NOTE ---
DATE: 10/09/2016 CHIEF COMPLAINT: Chest discomfort and shortness of breath. SUBJECTIVE: Mr. Epperson is in better spirits today. He is not having any pain. His breathing is better. He is not talking very much. He is eating some lunch. OBJECTIVE: Vital signs: His blood pressure today is 107/60, temperature 99.1, pulse 92, and respirations 18. General: He is awake, alert, oriented, and in no distress. HEENT: Unremarkable. Respiratory: Chest is fairly clear to auscultation and percussion. Cardiovascular: Heart sounds are regular and rhythmic. No gallop or murmur. Gastrointestinal: His abdomen is nontender. No masses. No hepatomegaly. Extremities: The extremities show no edema. Blood work today reveals a sodium of 137, potassium 4.1, BUN 14, and creatinine 1.8. Magnesium is 1.6. IMPRESSION: 1. Patient who presented with increasing chest pain and dyspnea. He does have coronary artery disease, severe and progressive with occlusion of vein graft a few days ago. He was admitted to [facility] for that matter. 2. He does have congestive heart failure. This is a combination of systolic and diastolic heart failure. 3. Previous stroke. 4. Poorly controlled diabetes mellitus. RECOMMENDATION: We will continue to optimize his medical therapy. I am going to go up on the Capoten to 12.5 three times a day. We will optimize his magnesium level. We will see how he does. He seems to be getting better very gradually.
[2016-10-09] MEDS ORDERED: CORDARONE PO SCH (17:00)
[2016-10-09] MEDS: CELEXA PO SCH (21:31)
[2016-10-09] MEDS: FLOMAX PO SCH (21:32)
[2016-10-09] MEDS: ZOFRAN IV PRN (21:35)
[2016-10-10] MEDS: LOPRESSOR PO SCH ×3 (03:48→15:05)
[2016-10-10] MEDS: HUMALOG SUBQ SCH ×4 (05:08→12:23)
[2016-10-10] MEDS: CAPOTEN PO SCH ×2 (05:09→13:23)
[2016-10-10] MEDS: LOVENOX SUBQ SCH (05:10)
[2016-10-10] MEDS: PRILOSEC PO SCH (06:02)
[2016-10-10 06:23] LABS: AGAP 11; BUN 15 mg/dL (8-22); CALCIUM 8.9 mg/dL (8.8-10.2); CHLORIDE 92 mmol/L (98-107); COSMO 275; MAGNESIUM 1.7 mg/dL (1.5-2.7); POTASSIUM 3.5 mmol/L (3.5-5.1); SODIUM 138 mmol/L (136-145); TCO2 35 mmol/L (25-35)
--- NOTE | 2016-10-10 06:57 | EKG Report ---
Test Performed on : 10/10/2016 06:41:23 AM Test Reason : arrhythmia Blood Pressure : / mmHG Vent. Rate : 075 BPM Atrial Rate : 075 BPM P-R Int : 148 ms QRS Dur : 094 ms QT Int : 432 ms P-R-T Axes : 048 019 -04 degrees QTc Int : 482 ms Normal sinus rhythm. Nonspecific T wave abnormality Prolonged QT Abnormal ECG When compared with ECG of 09-OCT-2016 06:34, QT has shortened Confirmed by Jennifer MOREL, Cristian Cantu ([id number]) on 10/11/2016 9:28:38 AM
[2016-10-10] MEDS: LIPITOR PO SCH (08:34)
[2016-10-10] MEDS: MIRALAX PO SCH (08:34)
[2016-10-10] MEDS: LASIX IV SCH (08:34)
[2016-10-10] MEDS: ASPIRIN PO SCH (08:34)
[2016-10-10] MEDS: PLAVIX PO SCH (08:35)
[2016-10-10] MEDS: LANOXIN PO SCH (08:35)
[2016-10-10] MEDS: ZOFRAN IV PRN (12:14)
[2016-10-10] MEDS: ALDACTONE PO SCH (12:23)
--- NOTE | 2016-10-10 12:33 | DISCHARGE SUMMARY ---
ADMISSION DATE: 10/06/2016 DISCHARGE DATE: 10/10/2016 ADMISSION DIAGNOSES: 1. Chest pain with elevated troponin. 2. Pulmonary edema. 3. Diabetes mellitus poorly controlled. 4. Hyperlipidemia. 5. Coronary artery disease. 6. Depression. DISCHARGE DIAGNOSES: 1. Chest pain with elevated troponin. 2. Pulmonary edema. 3. Diabetes mellitus poorly controlled. 4. Hyperlipidemia. 5. Coronary artery disease. 6. Depression. CONSULTATIONS: With Dr. Gary Otero with Cardiology. DIAGNOSTIC PROCEDURES AND FINDINGS: Chest x-ray done on 10/05/2016 shows pulmonary edema, congestive heart failure. An EKG done on 10/05/2016 shows normal sinus rhythm with diffuse nonspecific ST and T abnormalities. Chest x-ray done on 10/08/2016 shows bilateral pleural effusions. EKG done on 10/08/2016 shows normal sinus rhythm with diffuse nonspecific ST and T abnormalities. EKG done on 10/10/2016 shows normal sinus rhythm with diffuse nonspecific abnormalities and ST and T segments. HOSPITAL COURSE: Mr. Epperson is a 61-year-old male who was recently discharged from [facility] a week prior to admission with non STEMI at which time, he was found to have occluded vein graft. He came to the ER with acute onset of left-sided chest pain which was nonradiating and not associated with the nausea, vomiting, syncope or orthopnea. He did report some shortness of breath with exertion and was noted to have wheezing on admission. Given his recent non STEMI, [facility] was called in the ER and they recommended the patient be admitted here for medication optimization. His laboratory data were again consistent with non ST-elevation [place]. Cardiology was consulted. They felt that medication optimization would be the patient's best course of action. Indeed, Dr. Otero modified his medications quite a bit and his pain began to subside. He was diuresed with improvement of his respiratory status, and pulmonary venous congestion. He did not have any significant events during his stay. We controlled his comorbidities well including pattern blood sugars and fingerstick blood glucose every 4 hours. His medications have been optimized and he has reached maximum benefit of inpatient hospitalization and is now stable for discharge back to [facility]. DISCHARGE MEDICATIONS: Citalopram 10 mg at bedtime, Lasix 40 mg daily, Lantus 50 units subcu at bedtime, MiraLAX 1 package p.o. daily. Flomax 0.4 mg at bedtime. Lipitor 80 mg daily. Aspirin 81 mg daily. Capoten 12.5 mg p.o. q.8 hours. Plavix 75 mg p.o. daily. Lanoxin 125 mcg p.o. daily. Metoprolol 12.5 mg p.o. q.6 hours. Aldactone 12.5 mg p.o. daily. DISCHARGE LABORATORY DATA: Sodium 138, potassium 3.5. Chloride 92, CO2 35, anion gap 11, BUN 15, creatinine 0.8, glucose 76, magnesium 1.7. Calcium 8.9. DISCHARGE PHYSICAL EXAMINATION: Chronically ill and frail appearing 61-year-old male, lying in hospital bed. No acute distress. HEENT: Head is atraumatic and normocephalic. His pupils are equal, round, and reactive to light. Oropharynx is clear. Oral mucosa is moist. Trachea is midline. No JVD. No carotid bruits. Chest: Very mild bibasilar crackles noted which has improved since admission. CV: Regular rate and rhythm. S1, S2 is noted. GI: Soft, nondistended, nontender. Bowel sounds are positive. Extremities: No clubbing, cyanosis or edema is noted. DISCHARGE DIET: Diabetic. DISCHARGE ACTIVITY: Resume activity as tolerated. DISPOSITION AND OTHER DISCHARGE INSTRUCTIONS: Patient is discharged to [facility] for continued health care. He is to continue medical management under their care, continue all medications as prescribed. He is to follow up with his automatic nailing machine operator in the next week to 2 weeks or sooner if needed. We have instructed him to return to the ER or call 911 for any worsening complaints or concerns. All questions have been answered. DISCHARGE TIME: Greater than 35 minutes. Dictated by JASON Spangler for Aniket Escobar MD
--- NOTE | 2016-10-10 13:45 | PALLIATIVE CARE CONSULTATION ---
DATE: 10/10/2016 REQUESTING PHYSICIAN: Dr. Escobar. REASON FOR CONSULTATION: Goals of care related to Mr. Epperson's severe coronary artery disease. HISTORY OF PRESENT ILLNESS: This is a 61-year-old male with a past medical history of severe coronary artery disease, congestive heart failure, hypertension, diabetes mellitus type 2, hyperlipidemia, chronic pain syndrome, previous CVA, and depression. He was most recently admitted on 10/06/2016 after presenting to the emergency department with complaints of left-sided chest pain. It was also reported that he was discharged just a few days prior to this admission from [facility] for the same complaint. Currently Mr. Epperson is lying in the hospital bed. He is not very talkative but agrees to answer some questions regarding his goals of care. He denies pain, shortness of breath, nausea. He does complain of depression. He states that he sees a physician in [place] for his depression but he is unsure of who. He has no family at the bedside. The palliative care team has been consulted to assist with goals of care. REVIEW OF SYSTEMS: Twelve point review of system has been conducted and otherwise negative except those mentioned in the HPI. PAST MEDICAL HISTORY: See HPI. PAST SURGICAL HISTORY: 1. CABG. 2. Cervical neck fusion. 3. Bilateral carotid endarterectomy. 4. Cardiac catheterization. SOCIAL HISTORY: Past tobacco use. Alcohol and drug use denied. He is . He is disabled. FAMILY HISTORY: Positive for coronary artery disease and congestive heart failure. PHYSICAL EXAMINATION: General: This is a 61-year-old male who does not appear to be in any acute distress. HEENT: Atraumatic, normocephalic. Neck: Supple. Cardiovascular: Normal S1, S2 with murmur. Pulmonary: Lung sounds are diminished. Respirations are nonlabored. Abdomen: Soft. Bowel sounds are active. Extremities: Pulses are palpable. Skin: Warm and dry. IMPRESSION: This is a 61-year-old male with a past medical history as listed above in the HPI. The palliative care team was consulted to assist in goals of care related to Mr. Epperson severe coronary artery disease. As previously mentioned, Mr. Epperson agreed to answer questions regarding his goals care. However, he was not very talkative during the consultation. He did say that I could call and speak with his , who the nurse navigator contacted but she is unable to make a visit at this time. I will continue to attempt to contact her to see if we can identify any outpatient needs and to identify Mr. Epperson's goals of care. Mr. Epperson did state that he does not have an advanced directive or power of corporate associate attorney. He did request blank copies of those forms which were given. At this time Mr. Epperson is a full code. As previously mentioned, he does not have any acute complaints, nor does he appear in any kind of distress. The palliative care team will continue to follow daily until discharge. Thank you for this consultation. Dictated by JASON Sierra for Ronni Lovett MD
[2016-10-10 13:59] VITALS: BP 134/72
== END 2016-10-10 16:27 | DRG 280 ==
LOC: EDBD → ED 23:00 → EDIPHOLD 10-06 01:37 → 3S 10-06 11:28
PROVIDERS: ATTEND Internal Medicine
DX: I21.4 Non-ST elevation (NSTEMI) myocardial infarction (principal); I50.41 Acute combined systolic (congestive) and diastolic (congestive) heart failure; E11.65 Type 2 diabetes mellitus with hyperglycemia; I69.951 Hemiplegia and hemiparesis following unspecified cerebrovascular disease affecting right dominant side; Z95.1 Presence of aortocoronary bypass graft; I69.998 Other sequelae following unspecified cerebrovascular disease; I25.10 Atherosclerotic heart disease of native coronary artery without angina pectoris; R47.9 Unspecified speech disturbances; I10 Essential (primary) hypertension; E78.5 Hyperlipidemia, unspecified; F32.9 Major depressive disorder, single episode, unspecified; Z79.899 Other long term (current) drug therapy; Z79.82 Long term (current) use of aspirin; Z79.4 Long term (current) use of insulin; Z87.891 Personal history of nicotine dependence; Z82.49 Family history of ischemic heart disease and other diseases of the circulatory system; Z80.9 Family history of malignant neoplasm, unspecified
CPT/HCPCS: 71010; 71020; 80048; 80053; 80061; 81001; 82550; 82948; 83036; 83735; 83880; 84484; 85025; 85379; 85610; 85730; 93005; 93010; 94761; 96372; 96374; 96375; J1160; J1650; J1815; J1940; J2270; J2405; 97530-GP

== ENCOUNTER 2016-11-14 07:11 | Inpatient (IN) ==
[2016-11-14] MEDS ORDERED: LASIX IV ONE (07:48)
[2016-11-14 08:09] LABS: MANUAL DIFF NEEDED? NO
[2016-11-14 08:13] LABS: BASO% 0.6 % (0.0-0.8); EOS# 0.11 X1000 (0.0-0.7); EOS% 1.7 % (0.0-10.0); HEMATOCRIT 40.6 % (42.0-52.0); HEMOGLOBIN 13.2 g/dL (14.0-18.0); LYMPH# 2.27 X1000 (1.2-3.4); LYMPH% 35.2 % (20.5-51.1); MCHC 32.5 g/dL (33-37); MCV 89.2 FL (81-99); MONO# 0.75 X1000 (0.11-0.59); MONO% 11.6 % (1.7-9.3); MPV 11.5 FL (7.4-10.4); NEUT% 50.9 % (42.2-75.2); PLT 196 X1000 (130-400); RBC 4.55 XMIL (4.7-6.1)
[2016-11-14 08:19] LABS: ALLEN TEST NO; BE 8.4 mmoll (-3.0-3.0); BLOOD TYPE ARTERIAL; DRAW SITE L BRACHIAL; METHB 1.5 % (0.0-1.5); O2(CT) 17.1 mL/dL (15.0-23.0); PCO2(98.6) 50 mmHg (35-45); PO2(98.6) 83 mmHg (60-100); SAMPLE BLOOD; SAO2 99.2 % (95.0-100.0); THB 12.8 g/dL (11.5-17.4); pH(98.6) 7.44 (7.35-7.45)
[2016-11-14 08:20] LABS: MODALITY CANNULA
[2016-11-14] MEDS ORDERED: DUONEB (A & A) INH ONE (08:23)
[2016-11-14] MEDS ORDERED: SOLU-MEDROL IV ONE (08:23)
--- NOTE | 2016-11-14 08:23 | PROVIDER DOCUMENTATION ---
HPI-Respiratory General - General Chief Complaint: Wheezing Stated Complaint: upper back pain cp Time Seen by Provider: 11/14/16 07:32 Source: patient, family Allergies/Adverse Reactions: Patient Allergies Allergy/AdvReac Type Severity Reaction Status Date / Time No Known Allergies Allergy Verified 10/05/16 23:00 Home Medications: Home Medication List Medication Instructions Recorded Confirmed Last Taken Type Citalopram Hydrobromide [Celexa] 10 mg PO HS 04/24/13 11/14/16 10/18/16 21:00 History Furosemide [Lasix] 40 mg PO DAILY 10/05/16 11/14/16 10/19/16 08:00 History Tamsulosin [Flomax] 0.4 mg PO QHS 10/05/16 11/14/16 10/18/16 21:00 History ATORVAstatin [Lipitor] 80 mg PO DAILY #0 tablet 10/10/16 11/14/16 10/19/16 08: 00 Rx Clopidogrel [Plavix] 75 mg PO DAILY #30 tablet 10/10/16 11/14/16 10/19/16 08:00 Rx Digoxin [Lanoxin] 125 microgm PO DAILY #30 tablet 10/10/16 11/14/16 10/19/16 08: 00 Rx Spironolactone [Aldactone] 12.5 mg PO DAILY #30 tablet 10/10/16 11/14/16 08:00 Rx Metoprolol Succinate E.r. [Toprol 25 mg PO BID #30 tablet 10/25/16 11/14/16 Unknown Rx Xl] Captopril 12.5 mg PO DAILY 11/14/16 11/14/16 Unknown History Oxycodone HCl 15 mg PO PRN PRN 11/14/16 11/14/16 Unknown History Oxymorphone HCl 7.5 mg PO PRN PRN 11/14/16 11/14/16 Unknown History - History of Present Illness-Resp Nature of Presenting Problem: SOB since last night. Pt is on 2L home O2 for CHF and FL with EF=20%. Was at rehab recently due to an FL. Currently on medication management of his FL. Denies F/C/N/V, but SOB. Mild non-productive cough. Quality of Pain: reports: none Severity in ED: reports: moderate Onset/Duration: reports: last night Timing: reports: still present Context: denies: recent foreign travel Exposure: denies: unknown cause Cough Quality/Degree: reports: no cough Episode Frequency: no prior episodes Modifying Factors: improves with: nothing Associated Symptoms: reports: denies symptoms, shortness of breath, short of breath. denies: cough, facial pain, fever/chills, flu-like symptoms, heart racing, wheezing Similar Symptoms Previously?: Yes Recently seen or treated by another doctor?: No Review of Systems - Adult - REVIEW OF SYSTEMS - ADULT Constitutional: reports: no symptoms reported Eyes: reports: no symptoms reported Ears, Nose, Mouth & Throat: reports: no symptoms reported Cardiovascular: reports: see HPI. denies: chest pain Respiratory: reports: see HPI, cough, dyspnea on exertion, shortness of breath. denies: wheezing Gastrointestinal: reports: no symptoms reported Genitourinary: reports: no symptoms reported Musculoskeletal: reports: no symptoms reported Integumentary: reports: no symptoms reported Neurological: reports: no symptoms reported Psychiatric: reports: no symptoms reported Endocrine: reports: no symptoms reported Hematologic/Lymphatic: reports: no symptoms reported Allergic/Immunologic: reports: no symptoms reported All Other Systems: Reviewed and Negative Past History - Adult - PAST MEDICAL HISTORY-ADULT Review of Records: reports: Old Records Reviewed, Nursing Assessment Review, Medications Reviewed Major Childhood Illnesses: reports: denies history Cardiovascular: reports: CAD, HTN, heart valve problem, hyperlipidemia Respiratory: reports: bronchitis Gastrointestinal: reports: denies history Obstetrical/Gynecological: reports: denies history Genitourinary: reports: kidney stones Musculoskeletal: reports: arthritis Neurological: reports: CVA Psychiatric: reports: anxiety, depression Endocrine/Immune: reports: Diabetes Other Conditions: reports: denies history - PRIOR SURGERIES/PROCEDURES Surgical/Procedure History: reports: CABG, cardiac stent (2), back/neck, other ( pt had heart cath 04/17 ) - PRIOR HOSPITALIZATIONS Prior Hospitalizations: reports: none - IMMUNIZATION STATUS Childhood Immunizations: See Nurse Assessment Flu Vaccine: See Nurse Assessment - FAMILY HISTORY Family History: reviewed, not pertinent Physical Exam-General - PHYSICAL EXAM-ADULT Initial Vital Signs Reviewed: Yes - CONSTITUTIONAL General Appearance: appears well, alert, no apparent distress - EYES Eyes: PERRL/EOMI, pink conjunctivae - HEAD, EARS, NOSE, MOUTH & THROAT HENMT: normocephalic/atraumatic, moist mucous membranes, normal ENT inspection, TMs normal, pharynx normal - NECK Neck: non-tender, full range of motion, supple, normal inspection - RESPIRATORY Respiratory: chest non-tender, normal breath sounds, no pleuratic chest pain, no respiratory distress, no accessory muscle use, decreased breath sounds, accessory muscle use, rhonchi, wheezing. negative: crackles, rales, decreased rate, increased rate - CARDIOVASCULAR Cardiovascular: normal peripheral pulses, regular rate, rhythm, no edema, no gallop, no JVD, no murmur - GASTROINTESTINAL (ABDOMEN) Abdominal Exam: normal bowel sounds, non tender, soft, no organomegaly, no pulsatile mass - LYMPHATIC Lymphatic: no adenopathy - MUSCULOSKELETAL Back Exam: normal inspection, no CVA tenderness, no vertebral tenderness Extremity: normal range of motion, non-tender, normal gait, normal inspection, no pedal edema, no calf tenderness, normal capillary refill, pelvis stable - SKIN Integumentary: normal color, normal turgor, warm/dry - 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, no motor/sensory deficits - PSYCHIATRIC Psych/Mental Status: normal mood/affect, normal thought content, normal thought process, oriented x 3 Progress - PLAN OF CARE/RESULTS Progress/Plan/Lab Results: Vital Signs - 8 hr 11/14/16 07:21 11/14/16 07:28 11/14/16 07:35 Temperature 98.0 F Pulse Rate 96 H 98 H Respiratory Rate 22 24 Blood Pressure 122/95 122/95 O2 Sat by Pulse Oximetry 97 96 11/14/16 08:55 11/14/16 08:57 11/14/16 09:20 Temperature Pulse Rate 94 H 94 H 92 H Respiratory Rate 24 22 20 Blood Pressure 122/95 123/86 O2 Sat by Pulse Oximetry 97 95 94 L 11/14/16 10:10 11/14/16 11:00 11/14/16 13:06 Temperature Pulse Rate 96 H 92 H 98 H Respiratory Rate 15 20 25 H Blood Pressure 125/87 188/86 111/75 O2 Sat by Pulse Oximetry 93 L 95 92 L Laboratory Results - last 24 hr 11/14/16 11/14/16 11/14/16 07:52 07:52 07:52 WBC 6.44 RBC 4.55 L Hgb 13.2 L Hct 40.6 L MCV 89.2 MCH 29.0 MCHC 32.5 L RDW Std Deviation 15.5 H Plt Count 196 MPV 11.5 H Immature Gran % (Auto) 0.0 Neut % (Auto) 50.9 Lymph % (Auto) 35.2 Murray % (Auto) 11.6 H Eos % (Auto) 1.7 Baso % (Auto) 0.6 Immature Gran # (Auto) 0.00 Neut # (Auto) 3.27 Lymph # (Auto) 2.27 Murray # (Auto) 0.75 H Eos # (Auto) 0.11 Baso # (Auto) 0.04 PT INR PTT (Actin FS) D-Dimer 0.46 Specimen Type Sample Site pH pCO2 pO2 HCO3 Base Excess Oxyhemoglobin ABG O2 Sat (Calculated) ABG O2 Saturation ABG Carboxyhemoglobin ABG Methemoglobin Cristian Test Total Hemoglobin Lactate Liter Flow Blood Gas Modality Sodium 139 Potassium 3.4 L Chloride 94 L Carbon Dioxide 30 Anion Gap 15 BUN 14 Creatinine 0.7 Estimated GFR/1.73 m2 > 60 BUN/Creatinine Ratio 20 Glucose 329 H Calculated Osmolality 291 Calcium 9.2 Magnesium 1.3 L Total Bilirubin 0.75 AST 10 ALT 9 L Alkaline Phosphatase 71 Creatine Kinase 28 Troponin T Jme-P-Vfndkgwhnle Pept Total Protein 7.0 Albumin 3.3 L Globulin 3.7 Albumin/Globulin Ratio 0.9 Urine Source Urine Color Urine Turbidity Urine pH Ur Specific Osprey Urine Protein Ur Glucose (Stick) Ur Ketones (Stick) Urine Blood Urine Nitrite Urine Bilirubin Urobilinogen Dipstick Urine Leukocytes Urine WBC (Auto) Urine RBC (Auto) U Epithel Cells (Auto) Urine Bacteria (Auto) 11/14/16 11/14/16 11/14/16 07:52 07:52 07:52 WBC RBC Hgb Hct MCV MCH MCHC RDW Std Deviation Plt Count MPV Immature Gran % (Auto) Neut % (Auto) Lymph % (Auto) Murray % (Auto) Eos % (Auto) Baso % (Auto) Immature Gran # (Auto) Neut # (Auto) Lymph # (Auto) Murray # (Auto) Eos # (Auto) Baso # (Auto) PT 11.7 INR 1.11 PTT (Actin FS) 25.8 D-Dimer Specimen Type Sample Site pH pCO2 pO2 HCO3 Base Excess Oxyhemoglobin ABG O2 Sat (Calculated) ABG O2 Saturation ABG Carboxyhemoglobin ABG Methemoglobin Cristian Test Total Hemoglobin Lactate Liter Flow Blood Gas Modality Sodium Potassium Chloride Carbon Dioxide Anion Gap BUN Creatinine Estimated GFR/1.73 m2 BUN/Creatinine Ratio Glucose Calculated Osmolality Calcium Magnesium Total Bilirubin AST ALT Alkaline Phosphatase Creatine Kinase Troponin T 0.228 H Ivq-[id number]-Oqkrcqlafsr Pept 4351 H Total Protein Albumin Globulin Albumin/Globulin Ratio Urine Source Urine Color Urine Turbidity Urine pH Ur Specific Osprey Urine Protein Ur Glucose (Stick) Ur Ketones (Stick) Urine Blood Urine Nitrite Urine Bilirubin Urobilinogen Dipstick Urine Leukocytes Urine WBC (Auto) Urine RBC (Auto) U Epithel Cells (Auto) Urine Bacteria (Auto) 11/14/16 11/14/16 11/14/16 08:15 08:19 10:19 WBC RBC Hgb Hct MCV MCH MCHC RDW Std Deviation Plt Count MPV Immature Gran % (Auto) Neut % (Auto) Lymph % (Auto) Murray % (Auto) Eos % (Auto) Baso % (Auto) Immature Gran # (Auto) Neut # (Auto) Lymph # (Auto) Murray # (Auto) Eos # (Auto) Baso # (Auto) PT INR PTT (Actin FS) D-Dimer Specimen Type ARTERIAL Sample Site L BRACHIAL pH 7.44 pCO2 50 H pO2 83 HCO3 31.4 H Base Excess 8.4 H Oxyhemoglobin 94.8 L ABG O2 Sat (Calculated) 17.1 ABG O2 Saturation 99.2 ABG Carboxyhemoglobin 3.00 H ABG Methemoglobin 1.5 Cristian Test NO Total Hemoglobin 12.8 Lactate 1.40 Liter Flow 2.0 Blood Gas Modality CANNULA Sodium Potassium Chloride Carbon Dioxide Anion Gap BUN Creatinine Estimated GFR/1.73 m2 BUN/Creatinine Ratio Glucose Calculated Osmolality Calcium Magnesium Total Bilirubin AST ALT Alkaline Phosphatase Creatine Kinase 27 Troponin T Irf-S-Gishzrztrel Pept Total Protein Albumin Globulin Albumin/Globulin Ratio Urine Source CLEAN CATCH Urine Color YELLOW Urine Turbidity CLEAR Urine pH 5.5 Ur Specific Osprey 1.013 Urine Protein NEGATIVE Ur Glucose (Stick) >1000 A Ur Ketones (Stick) NEGATIVE Urine Blood NEGATIVE Urine Nitrite NEGATIVE Urine Bilirubin NEGATIVE Urobilinogen Dipstick NORMAL Urine Leukocytes NEGATIVE Urine WBC (Auto) <10 Urine RBC (Auto) <10 U Epithel Cells (Auto) <10 Urine Bacteria (Auto) NEGATIVE 11/14/16 10:19 WBC RBC Hgb Hct MCV MCH MCHC RDW Std Deviation Plt Count MPV Immature Gran % (Auto) Neut % (Auto) Lymph % (Auto) Murray % (Auto) Eos % (Auto) Baso % (Auto) Immature Gran # (Auto) Neut # (Auto) Lymph # (Auto) Murray # (Auto) Eos # (Auto) Baso # (Auto) PT INR PTT (Actin FS) D-Dimer Specimen Type Sample Site pH pCO2 pO2 HCO3 Base Excess Oxyhemoglobin ABG O2 Sat (Calculated) ABG O2 Saturation ABG Carboxyhemoglobin ABG Methemoglobin Cristian Test Total Hemoglobin Lactate Liter Flow Blood Gas Modality Sodium Potassium Chloride Carbon Dioxide Anion Gap BUN Creatinine Estimated GFR/1.73 m2 BUN/Creatinine Ratio Glucose Calculated Osmolality Calcium Magnesium Total Bilirubin AST ALT Alkaline Phosphatase Creatine Kinase Troponin T 0.214 H Yiw-A-Iyrgtluawiw Pept Total Protein Albumin Globulin Albumin/Globulin Ratio Urine Source Urine Color Urine Turbidity Urine pH Ur Specific Osprey Urine Protein Ur Glucose (Stick) Ur Ketones (Stick) Urine Blood Urine Nitrite Urine Bilirubin Urobilinogen Dipstick Urine Leukocytes Urine WBC (Auto) Urine RBC (Auto) U Epithel Cells (Auto) Urine Bacteria (Auto) Orders Category Date Time Status Cardiac Monitoring DIRECTED Care 11/14/16 07:48 Active Oxygen Therapy- ED Nursing DIRECTED Care 11/14/16 07:48 Active Saline Loc NOW Care 11/14/16 07:48 Active cardiac diet [Heart Healthy Diet] Diet 11/14/16 13:08 Active CHEST-PORTABLE [RAD] Stat Exams 11/14/16 07:[address] THORAX W/O CONTRAST [CT] Stat Exams 11/14/16 14:25 Ordered ABG [RESP] Routine Lab 11/14/16 08:15 Completed BLOOD CULTURE [BLDCUL] Stat Lab 11/14/16 08:13 Results CBC WITH ELECTRONIC DIFF [HEME] Stat Lab 11/14/16 07:52 Completed CK PROFILE [SP CHEM] Stat Lab 11/14/16 07:52 Completed CK PROFILE [SP CHEM] Stat Lab 11/14/16 10:19 Completed COMPREHENSIVE METABOLIC PANEL [CHEM] Stat Lab 11/14/16 07:52 Completed D-DIMER [CHEM] Stat Lab 11/14/16 07:52 Completed MAGNESIUM [CHEM] Stat Lab 11/14/16 07:52 Completed PRO B-NATRIURETIC PEPTIDE Stat Lab 11/14/16 07:52 Completed PROTIME WITH INR [COAG] Stat Lab 11/14/16 07:52 Completed PTT [COAG] Stat Lab 11/14/16 07:52 Completed TROPONIN T Stat Lab 11/14/16 07:52 Completed TROPONIN T Stat Lab 11/14/16 10:19 Completed UA NIMS W/REFLEX CULT [URINALYSIS] Stat Lab 11/14/16 08:19 Completed Albuterol 2.5MG/Ipratrop 0.5MG [Duoneb (A & A)] Med 11/14/16 08:23 Discontinued 3 ml INH NOW ONE Furosemide [Lasix] Med 11/14/16 07:48 Discontinued 80 mg IV NOW ONE Meropenem [Merrem] 1 gm Med 11/14/16 14:21 Discontinued 0.9% Sodium Chloride Inj [Ns] 50 ml IV NOW Methylprednisolone Sod Succ [Solu-Medrol] Med 11/14/16 08:23 Discontinued 125 mg IV NOW ONE Potassium Chloride E.r. [Klor-Con] Med 11/14/16 09:38 Discontinued 40 meq PO NOW ONE Aerosol Treatments Routine Oth 11/14/16 08:24 Completed Aerosol Treatments Stat Oth 11/14/16 08:24 Completed EKG [EKG] Stat Ther 11/14/16 07:48 Draft Result Diagrams: 11/14/16 07:52 11/14/16 07:52 - REASSESSMENT Reassessment #1 Time Reassessed: 10:37 Status: improving (Pt is doing much better. 500 CC UOP and feels much better. Awaiting for 2nd set Trop and will go home is no change. Pt's and pt agrees with the plan. Pt r/o Lasix and requesting a prescription.) - CONSULTS/PCP/HOSPITALIST Notification Time Discussed: 14:40 Reason/Comments: dmit to Dr. Rueda Consult Disposition: Admit Departure - Departure Time of Disposition Decision: 14:39 DIAGNOSIS: CHF (congestive heart failure) Qualifiers: Congestive heart failure type: unspecified congestive heart failure type Congestive heart failure chronicity: acute on chronic Qualified Code(s): I50.9 - Heart failure, unspecified Pneumonia Qualifiers: Pneumonia type: due to unspecified organism Lung location: unspecified part of lung Disposition: ADMITTED INPATIENT 09 Certified Medical Emergency: Emergent Condition: Stable Referrals and Follow-Ups: None,PCP [Primary Care Provider] -
[2016-11-14 08:24] LABS: INR 1.11; PROTIME 11.7 Seconds (9.2-11.7); PTT 25.8 Seconds (22.0-36.0)
--- NOTE | 2016-11-14 08:47 | Diag Imaging Result Document ---
PROCEDURE NAME: CHEST-PORTABLE - 11/14/2016 PORTABLE UPRIGHT CHEST: COMPARISON: 10/21/2016. FINDINGS: Poor inspiratory effort. Sternal wires are present. There are increased interstitial markings throughout both lungs. Questionable small right pleural effusion. IMPRESSION: Pneumonia versus congestive failure.
[2016-11-14 09:12] LABS: URINE CULTURE NEEDED? NO; URINE MICRO REVIEW NEEDED? NO; URINE SOURCE CLEAN CATCH
[2016-11-14 09:15] LABS: AGAP 15; ALBUMIN 3.3 g/dL (3.5-5.0); ALKALINE PHOSPHATASE 71 U/L (32-122); BUN 14 mg/dL (8-22); CALCIUM 9.2 mg/dL (8.8-10.2); CHLORIDE 94 mmol/L (98-107); CK PROFILE 28 U/L (24-204); COSMO 291; GOT 10 U/L (10-34); GPT 9 U/L (10-44); MAGNESIUM 1.3 mg/dL (1.5-2.7); POTASSIUM 3.4 mmol/L (3.5-5.1); SODIUM 139 mmol/L (136-145); TCO2 30 mmol/L (25-35); TOTAL BILIRUBIN 0.75 mg/dL (0.20-1.00)
[2016-11-14 09:17] LABS: BILIRUBIN URINE NEGATIVE (NEGATIVE); BLOOD URINE NEGATIVE (NEGATIVE); COLOR YELLOW; GLUCOSE URINE >1000 mg/dL (NEGATIVE); LEUKOCYTES URINE NEGATIVE (NEGATIVE); NITRITE URINE NEGATIVE (NEGATIVE); PH URINE 5.5; PROTEIN URINE NEGATIVE (NEGATIVE); SP GRAVITY URINE 1.013; TURBIDITY URINE CLEAR (CLEAR); UROBILINOGEN URINE NORMAL (NORMAL)
[2016-11-14 09:21] LABS: UR EPITHELIAL CELLS <10 /HPF (<10); URINE BACTERIA NEGATIVE /HPF; URINE RBC <10 /HPF (<10); URINE WBC <10 /HPF (<10)
[2016-11-14] MEDS ORDERED: KLOR-CON PO ONE (09:38)
--- NOTE | 2016-11-14 09:46 | EKG Report ---
Test Performed on : 11/14/2016 07:57:25 AM Test Reason : Chest Pain Blood Pressure : / mmHG Vent. Rate : 094 BPM Atrial Rate : 094 BPM P-R Int : 160 ms QRS Dur : 094 ms QT Int : 372 ms P-R-T Axes : 065 024 -81 degrees QTc Int : 465 ms Normal sinus rhythm. Low voltage QRS Nonspecific T wave abnormality Prolonged QT Abnormal ECG When compared with ECG of 19-OCT-2016 12:27, No significant change was found Unconfirmed Result
[2016-11-14] MEDS ORDERED: MERREM 1 GM in NS 50 ML IV ONE (14:21)
--- NOTE | 2016-11-14 15:21 | Diag Imaging Result Document ---
PROCEDURE NAME: CT THORAX W/O CONTRAST - 11/14/2016 CT CHEST: A CT dose reduction protocol was used. COMPARISON: 10/21/2016. FINDINGS: There are moderate pleural effusions similar to prior. There is some slight interstitial pulmonary edema similar to prior. There is some scattered atelectasis similar to prior. No new or focal infiltrates. Stable CABG changes. Stable small stones or sludge in the gallbladder. Extensive degenerative changes of the spine. No acute or destructive bony lesions. IMPRESSION: No change from prior. Pulmonary edema, cardiomegaly, and moderately large pleural effusions. [facility]
[2016-11-14] MEDS ORDERED: MAGNESIUM SULFATE 4 GM/S.W.I. 4 GM/100 ML IVPB IV ONE (15:46)
[2016-11-14] MEDS ORDERED: ZOFRAN IV PRN (15:57)
[2016-11-14] MEDS ORDERED: TYLENOL PO PRN (15:57)
[2016-11-14] MEDS ORDERED: OXYMORPHONE HCL PO PRN (15:57)
[2016-11-14] MEDS ORDERED: OXY IR PO PRN (15:57)
--- NOTE | 2016-11-14 17:55 | HISTORY AND PHYSICAL ---
PRIMARY CARE PROVIDER: Dr. Sunil Vang. CHIEF COMPLAINT: Wheezing and shortness of breath. HISTORY OF PRESENT ILLNESS: Mr. Epperson is a 61-year-old male with a history of recent acute MD that was non-STEMI, hypertension, diabetes mellitus type 2, history of stroke, who apparently has been wearing home O2 2 L for congestive heart failure versus COPD. He comes in complaining of shortness of breath since last night despite wearing his 2 L of home oxygen. He describes it as wheezing. He just recently got discharged from [facility] on Saturday secondary to his weakness after his non-STEMI. He states he has a nonproductive cough and denies having a fever or chills. He denies any blood in his urine or stool. Chest x-ray showed CHF versus pneumonia and chest CT showed pulmonary edema; cardiomegaly; and moderately large bilateral pleural effusions. He received 80 of Lasix in the ER. We will continue with 40 of Lasix twice daily. We will need to consider possible thoracentesis. PAST MEDICAL HISTORY: Hypertension, coronary artery disease status post CABG in 2008. Recent NSTEMI with no interventions, diabetes mellitus type 2, hyperlipidemia, chronic pain secondary to sternal incision from bypass surgery, CVA, depression, COPD with home O2 at 2 L , systolic and diastolic congestive heart failure with EF of 35-40%. SURGICAL HISTORY: CABG, cervical neck fusion, bilateral carotid endarterectomies, left heart catheterization. SOCIAL HISTORY: Quit smoking in 2007. One pack per day smoker for 15 years prior to that. Denies alcohol or illicit drug use. Lives with his . Had a recent discharge from [facility] on Saturday and is disabled. FAMILY HISTORY: Father from congestive heart failure. Mother from cancer. Brother from myocardial infarction. ALLERGIES: No known drug allergies. HOME MEDICATIONS: Lipitor 80 mg p.o. daily. Captopril 12.5 mg p.o. daily. Celexa 10 mg p.o. nightly. Plavix 75 mg p.o. daily. Digoxin 125 mcg p.o. daily. Lasix 40 mg p.o. daily. Metoprolol 25 mg p.o. twice daily. Oxycodone 15 mg p.o. as needed. Oxymorphone 7.5 mg p.o. as needed. Aldactone 12.5 mg p.o. daily. Flomax 0.4 mg p.o. nightly. PHYSICAL EXAMINATION: VITAL SIGNS: Temperature 98.0 degrees, heart rate 91, respiratory rate 16, blood pressure 124/83, O2 saturation 95% on room air. GENERAL: Mr. Epperson is a 61-year-old male, he is in no acute distress. He is able to answer questions appropriately. HEENT: Atraumatic normocephalic. Pupils equal, round, reactive to light. Extraocular movements intact. Mucous membranes are moist. NECK: No JVD or carotid bruits noted. CARDIOVASCULAR: S1, S2. Regular rate and rhythm. No rubs, gallops, murmurs. PULMONARY: Clear to auscultate. Decreased in the bases with some mild expiratory wheezes. GI: Soft, nontender, nondistended. Positive bowel sounds x4. NEURO: Oriented x3. Moves all extremities equally. LABORATORY DATA: White blood cells 6000, hemoglobin 13, hematocrit 40, platelet count 196,000. INR 1.11. D-dimer 0.46. PH 7.44, pCO2 50, PO2 83, bicarb 31. Lactate 1.4. Sodium 139, potassium 3.4, BUN 14, creatinine 0.7, glucose 329. Magnesium 1.3. Bilirubin 0.75. AST 10, ALT 9. CK 27, troponin 0.2. ProBNP 4351. Urinalysis greater than 1000 glucose. IMAGING: Chest x-ray, pneumonia versus congestive heart failure with pulmonary edema. The chest CT, pulmonary edema and cardiomegaly but moderately large pleural effusions that is similar to a prior. CT. EKG, normal sinus rhythm, rate 94, QTc is 465. No ST elevations. ASSESSMENT AND PLAN: 1. Acute on chronic systolic diastolic congestive heart failure with large bilateral pleural effusions causing shortness of breath. He received 80 of Lasix IV in the ER. Will receive 40 of Lasix IV twice daily. Last ejection fraction was 35-40%. Cardiology Consult. 2. COPD. Continue 2 L nasal cannula. CO2 is elevated at 50 but this seems to be stable. We will go ahead and do IV steroids and inhaled nebulizers with prophylactic antibiotic as the patient's chest x-ray showed possible pneumonia. 3. Possible pneumonia. See #2. 4. Bilateral Large Pleural Effusions. Plan for Thoracentesis soon. 5. Coronary artery disease with recent NSTEM and Chronic troponinemia. Continue medical management. 5. Diabetes mellitus II. Continue with sliding scale insulin. Pattern blood glucoses. 6. Hyperlipidemia. Continue statin. 7. Depression. 8. CVA history. 9. Hypertension history. Continue medications. 10. Deep venous thrombosis prophylaxis with recent DVT. Hold Plavix for now d/ t need of thoracentesis. 11. Chronic pain syndrome. Continue home medications. 12. BPH. Continue home medications. 13. Hypomagnesemia. Will give IV magnesium replacement. Dictated by JASON Pitts for Aniket Escobar MD cc: MD Aniket Mccauley MD MTDD
[2016-11-14] MEDS: HUMULIN R SUBQ SCH ×2 (19:14→20:36)
[2016-11-14] MEDS: PULMICORT INH SCH (19:42)
[2016-11-14] MEDS: DUONEB (A & A) INH SCH ×2 (19:43→22:56)
[2016-11-14] MEDS: TOPROL XL PO SCH (20:36)
[2016-11-14] MEDS: CELEXA PO SCH (20:36)
[2016-11-14] MEDS: FLOMAX PO SCH (20:36)
[2016-11-14] MEDS: SOLU-MEDROL IV SCH (20:36)
[2016-11-14] MEDS: ROCEPHIN 1 GM/NS 1 GM/50 ML IVPB IV SCH (20:37)
[2016-11-15] MEDS: DUONEB (A & A) INH SCH ×6 (02:57→23:11)
[2016-11-15 05:14] LABS: MANUAL DIFF NEEDED? NO
[2016-11-15 05:24] LABS: HEMATOCRIT 37.5 % (42.0-52.0); LYMPH# 1.29 X1000 (1.2-3.4); LYMPH% 18.9 % (20.5-51.1); MCH 28.6 PG (27-31); MCV 89.5 FL (81-99); MONO# 0.51 X1000 (0.11-0.59); MONO% 7.5 % (1.7-9.3); NEUT% 73.6 % (42.2-75.2); PLT 187 X1000 (130-400); RBC 4.19 XMIL (4.7-6.1)
[2016-11-15 05:44] LABS: AGAP 12; ALKALINE PHOSPHATASE 64 U/L (32-122); BUN 19 mg/dL (8-22); CALCIUM 8.5 mg/dL (8.8-10.2); CHLORIDE 96 mmol/L (98-107); COSMO 296; GOT 6 U/L (10-34); GPT 6 U/L (10-44); POTASSIUM 4.2 mmol/L (3.5-5.1); SODIUM 140 mmol/L (136-145); TCO2 32 mmol/L (25-35)
[2016-11-15] MEDS: SOLU-MEDROL IV SCH ×2 (06:14→17:19)
[2016-11-15] MEDS: PROTONIX PO SCH (06:14)
[2016-11-15] MEDS: HUMULIN R SUBQ SCH ×4 (06:14→20:02)
[2016-11-15] MEDS: PULMICORT INH SCH (07:34)
[2016-11-15] MEDS: LASIX IV SCH ×2 (08:31→20:00)
[2016-11-15] MEDS: ALDACTONE PO SCH (08:31)
[2016-11-15] MEDS: LANOXIN PO SCH (08:31)
[2016-11-15] MEDS: TOPROL XL PO SCH ×2 (08:32→20:00)
[2016-11-15] MEDS: CAPOTEN PO SCH (08:32)
[2016-11-15] MEDS: LIPITOR PO SCH (08:32)
[2016-11-15 08:33] LABS: HEMOGLOBIN A1C 9.4 % (4.8-6.0)
[2016-11-15] MEDS ORDERED: PLAVIX PO SCH (09:00)
[2016-11-15] MEDS: LANTUS SUBQ SCH (09:29)
[2016-11-15] MEDS ORDERED: MORPHINE IV PRN (11:32)
--- NOTE | 2016-11-15 13:14 | CONSULTATION ---
DATE OF CONSULTATION: 11/15/2016 INDICATION: Shortness of breath, acute heart failure. HISTORY OF PRESENT ILLNESS: Mr. Epperson is a 61-year-old white male with a history of ischemic cardiomyopathy and stroke. Apparently, he had a recent hospitalization in October 2016, at which time he was treated for congestive heart failure. He re-presented roughly 5 days after discharge from rehabilitation with worsening shortness of breath. The patient is an extremely poor historian with limited participation in the history. He does not think that he has missed any medications, nor does he think that there has been any sodium or fluid indiscretion in his diet. He is not complaining of any shortness of breath or chest pain presently. He is lying in bed quietly, occasionally eating his meal. Again, minimal interaction with the examiner. PAST MEDICAL HISTORY: 1. Hypertension. 2. Ischemic cardiomyopathy with most recent ejection fraction of 35% to 40%. He had a recent hospitalization at [facility] in September 2016, at which point he had severe disease throughout the circumflex and occluded vein graft to the obtuse marginal, patent internal mammary artery. 3. Diabetes mellitus. 4. Chronic pain. 5. Stroke. 6. Depression. 7. Chronic obstructive pulmonary disease with home oxygen therapy. SOCIAL HISTORY: He quit smoking in 2007 and denies any alcohol or illicit drugs. Lives with his . FAMILY HISTORY: His father from congestive heart failure. Mother from unknown type of cancer. REVIEW OF SYSTEMS: A 10-system review of systems is negative except for those things mentioned in the HPI. PHYSICAL EXAMINATION: Vital Signs: He is afebrile. Heart rate of 105, blood pressure 103/64. His I's and O's thus far for the hospitalization appear negative around 700 mL. General: No acute distress. HEENT: Oropharynx is moist. Poor dentition. Eye examination shows pink conjunctivae, white sclerae. Neck: Examination shows no obvious thyromegaly or thyroid tenderness. Cardiovascular: He sounds to be in a regular rate and rhythm. He has no obvious murmurs. There is no S3. He has no lower extremity edema. Lungs: His chest examination has some reduced breath sounds noted bilaterally in the bases. No increased work of breathing. Abdomen: Soft, nontender, nondistended. No obvious organomegaly. Skin: Warm and dry throughout, without any rashes. Neurological: He is not really participating with the examination. Psychiatric: He has a somewhat flat affect. Again, very minimal interaction. PERTINENT DATA: His CT scan of his chest demonstrated pulmonary edema, cardiomegaly, and moderately large pleural effusions. His EKG showed sinus rhythm. He had nonspecific ST and T- wave changes. Rate was 94 beats per minute. His data shows white count of 6.8, hematocrit 37.5, platelet count 187,000. His sodium is 140, potassium 4.2. His BUN is 19, creatinine 0.8. His albumin level is 3.0. His troponin is 0.214. Notably, during his entire hospitalization last month his troponin ranged between 0.637 and 1.2. His troponin here has been very flat at 0.214 and 0.228, respectively. Digitalis level was 0.5. ASSESSMENT: Acute systolic heart failure. PLAN: Patient has very limited blood pressure to work with to titrate his medications. I would continue him on his current medications as they are ordered. He has Lasix ordered 40 mg IV b.i.d. I agree with the plan for thoracentesis. cc: Jhony Segundo MD
--- NOTE | 2016-11-15 14:37 | PROGRESS NOTE ---
DATE: 11/15/2016 SUBJECTIVE: Patient reports feeling better. Less shortness of breath. No fever or chills. OBJECTIVE: Vital Signs: Temperature 97.7 degrees, heart rate 105, respiratory rate 18, blood pressure 103/64, O2 saturation 95% 2 L nasal cannula. General Examination: This is a 61-year- old, looking older than his age, male, lying in bed, in no acute distress. HEENT: Head is normocephalic, atraumatic. Anicteric sclerae and pale conjunctivae. Mucous membranes moist. Neck: Supple. No JVD noted. No carotid bruits. No lymphadenopathy. No thyromegaly. Cardiovascular: S1, S2 heard. No murmurs, gallops, or rubs. Regular rate and rhythm. Respiratory: Clear bilaterally to auscultation. No work of breathing or using accessory muscles. There was some mild expiratory wheezing and crackles in both bases. There are decreased breath sounds in the left side of the thorax. GI: Abdomen is soft, nontender to palpation. Bowel sounds present. No organomegaly. Extremities: No clubbing, cyanosis, or edema. Peripheral pulses present in both legs. Neurological: Patient alert and oriented x3. Able to move 4 extremities. Cranial nerves 2-12 grossly normal. LABORATORY DATA: White cell count 6.81, hemoglobin 12.0, hematocrit 37.5, platelets 187,000. BMP unremarkable except glucose 363. ASSESSMENT/PLAN: 1. Acute systolic CHF. The patient has received 80 mg of Lasix IV in the ER, and we have continued with Lasix 40 IV b.i.d. We will continue with the same management. Cardiology has been consulted. We will follow their recommendations. 2. Left pleural effusion. According to the CT of the chest done yesterday it looks like this patient had a moderate to large pleural effusion. Plan today Dr. Hays is going to help us performing pleural thoracentesis. 3. COPD. Patient is on 2 L nasal cannula at home so we are going to continue with DuoNeb every 4 hours as scheduled. We suspected initially pneumonia but the CT of the chest did not show any infiltrate. 4. Diabetes mellitus. That is bad controlled. We are going to start Lantus 25 units daily and will continue checking BMP and Accu-Cheks. 5. Hyperlipidemia. We will continue with statin. 6. Depression. We are going to continue with home medications. 7. Hypertension. Blood pressure is now under control. We will continue with same management. 8. History of CVA. Stable. 9. Benign prostatic hypertrophy. Stable. We will continue with the same management. cc: Aniket Escobar MD
[2016-11-15 17:15] LABS: DIFF NEEDED? YES; SPECIMEN PLEURAL FLUID; WBC BF 468 /cumm
[2016-11-15 17:28] LABS: MONOS 74 %; POLYS 26 %
[2016-11-15 17:39] LABS: TOTAL PROT BODY FLUID 2.1 g/dL
--- NOTE | 2016-11-15 19:10 | Diag Imaging Result Document ---
PROCEDURE NAME: CHEST-PORTABLE - 11/15/2016 PORTABLE CHEST COMPARISON: 11/22/16 FINDINGS: No postprocedural pneumothorax. Sternal wires are present. Pulmonary edema is less pronounced. There is a small right effusion which remains. The heart remains enlarged. IMPRESSION: No postprocedural pneumothorax.
--- NOTE | 2016-11-15 19:59 | ECHO REPORT ---
ORDER DATE: 11/15/2016 INTERPRETING PHYSICIAN: Dr. Otero CLINICAL INDICATIONS: [id number]-old male, myocardial infarction recently, congestive heart failure. FINDINGS: This is a limited study. 1. There is no pericardial effusion. 2. The left ventricular chamber is moderately to significantly dilated. There is mild global impairment of the systolic function, ejection fraction estimated in the range of 45 to 50% with akinesis of the basal to mid inferior wall and significant impairment of the posterior wall. 3. The right ventricle is not significantly enlarged. The pulmonic valve appears to be grossly normal. Color flow mapping indicates mild degree of regurgitation. The tricuspid valve shows mild degree of regurgitation. The pulmonary pressure is estimated at 48 mmHg. Aortic valve has three cusps. They open normally. Color flow mapping unremarkable. Mitral valve shows mild to moderate degree of regurgitation. There is a left pleural effusion. There is calcification of mitral annulus. There is apparently a pseudo-normal pattern of mitral inflow. This may indicate significant diastolic dysfunction. SUMMARY: This study showed: 1. No pericardial effusion. 2. Moderately enlarged left ventricle with mild global impairment of systolic function, ejection fraction 45% to 50%, with akinesis of inferior wall and significant impairment of the posterolateral segment. 3. Mild to moderate degree of mitral regurgitation. 4. Mild degree of tricuspid regurgitation, pulmonary pressure of 48 mmHg. A pleural effusion is noted. Clinical correlation is recommended. cc: MD Lani Miller PA
[2016-11-15] MEDS: CELEXA PO SCH (20:00)
[2016-11-15] MEDS: ROCEPHIN 1 GM/NS 1 GM/50 ML IVPB IV SCH (20:00)
[2016-11-15] MEDS: FLOMAX PO SCH (20:02)
--- NOTE | 2016-11-15 21:42 | OPERATIVE NOTE ---
PROCEDURE DATE: 11/15/2016 INDICATION: Pleural effusion. PROCEDURE NOTE: This is a 61-year-old male with a large bilateral effusion right and left who comes in for symptomatic dyspnea. Time-out performed. Patient consents for procedure. He underwent local anesthetic after sterile field was dressed with 1% lidocaine. A catheter was passed without difficulty. We got 1400 mL of dark yellow fluid, which was clear, not opaque, sent for studies. No complications during the procedure. Chest x-ray is pending. cc: Mk Hays MD
[2016-11-16] MEDS: DUONEB (A & A) INH SCH ×6 (03:37→23:14)
[2016-11-16] MEDS: SOLU-MEDROL IV SCH ×2 (05:03→17:01)
[2016-11-16 05:50] LABS: AGAP 12; ALKALINE PHOSPHATASE 61 U/L (32-122); BUN 28 mg/dL (8-22); CALCIUM 8.4 mg/dL (8.8-10.2); CHLORIDE 97 mmol/L (98-107); COSMO 291; GOT 8 U/L (10-34); GPT 6 U/L (10-44); LDH 154 U/L (135-225); POTASSIUM 4.1 mmol/L (3.5-5.1); SODIUM 138 mmol/L (136-145); TCO2 29 mmol/L (25-35); TOTAL BILIRUBIN 0.39 mg/dL (0.20-1.00); TOTAL PROTEIN 6.3 g/dL (6.3-8.3)
[2016-11-16] MEDS: PROTONIX PO SCH (06:04)
[2016-11-16] MEDS: HUMULIN R SUBQ SCH ×2 (06:04→11:15)
[2016-11-16] MEDS: LASIX IV SCH (08:27)
[2016-11-16] MEDS: CAPOTEN PO SCH (08:28)
[2016-11-16] MEDS: LANOXIN PO SCH (08:28)
[2016-11-16] MEDS: LANTUS SUBQ SCH (08:28)
[2016-11-16] MEDS: ALDACTONE PO SCH (08:28)
[2016-11-16] MEDS: TOPROL XL PO SCH ×2 (08:28→20:04)
[2016-11-16] MEDS: LIPITOR PO SCH (08:28)
[2016-11-16 09:30] LABS: AGAP 11; BUN 29 mg/dL (8-22); CALCIUM 8.6 mg/dL (8.8-10.2); CHLORIDE 95 mmol/L (98-107); COSMO 296; POTASSIUM 4.3 mmol/L (3.5-5.1); SODIUM 139 mmol/L (136-145); TCO2 33 mmol/L (25-35)
[2016-11-16] MEDS ORDERED: LANTUS SUBQ ONE (15:05)
[2016-11-16] MEDS ORDERED: LANTUS SUBQ SCH (15:06)
[2016-11-16] MEDS: HUMALOG SUBQ SCH ×2 (16:02→20:04)
[2016-11-16] MEDS: CELEXA PO SCH (20:04)
[2016-11-16] MEDS: ROCEPHIN 1 GM/NS 1 GM/50 ML IVPB IV SCH (20:04)
[2016-11-16] MEDS: FLOMAX PO SCH (20:04)
[2016-11-17] MEDS: DUONEB (A & A) INH SCH ×6 (05:19→22:51)
[2016-11-17 05:45] LABS: AGAP 11; BUN 29 mg/dL (8-22); CALCIUM 8.6 mg/dL (8.8-10.2); CHLORIDE 94 mmol/L (98-107); COSMO 289; POTASSIUM 4.4 mmol/L (3.5-5.1); SODIUM 136 mmol/L (136-145); TCO2 31 mmol/L (25-35)
[2016-11-17] MEDS: PROTONIX PO SCH (06:14)
[2016-11-17] MEDS: SOLU-MEDROL IV SCH (06:14)
[2016-11-17] MEDS: HUMALOG SUBQ SCH ×4 (06:19→21:22)
--- NOTE | 2016-11-17 06:40 | PROGRESS NOTE ---
DATE: 11/16/2016 SUBJECTIVE: Patient reports feeling better. Less short of breath after the procedure. No fever or chills. OBJECTIVE: Vital Signs: Temperature 97.6 degrees, heart rate 78, respiratory rate 20, blood pressure 97/55, O2 saturation 96% on 2 L nasal cannula. General Examination: This is a 61-year- old, looking older than his age, male, lying in bed, in no acute distress. HEENT: Head is normocephalic, atraumatic. Anicteric sclerae, pale conjunctivae. Mucous membranes moist. Neck: Supple. No JVD noted. No carotid bruits. No lymphadenopathy. No thyromegaly. Cardiovascular: S1, S2 heard. No murmurs, gallops, or rubs. Regular rate and rhythm. Respiratory: Decreased breath sounds in the right side of base. Patient is not using any accessory muscles or having work of breathing. Abdomen: Soft, nontender to palpation. Bowel sounds present. No organomegaly. Extremities: No clubbing, cyanosis, or edema. Peripheral pulses present in both legs. Neurological: Patient is alert and oriented x3. Able to move 4 extremities. Cranial nerves 2-12 grossly normal. LABORATORY DATA: There are no labs from today. There is no CBC from today but today BMP is okay except glucose 313. ASSESSMENT/PLAN: 1. Acute systolic congestive heart failure. Patient is on Lasix 40 mg IV b.i.d. Blood pressure has been lying in the 90s, so we are going to reduce it today to 40 mg IV daily. Cardiology has been consulted and according to them there is not much room to adjust the doses of medications. At this time the plan is to continue with the same medications. 2. For left pleural effusion, Dr. Hays has helped us to remove 1.4 L of pleural fluid and sample has been sent to lab. We are still waiting for results. 3. Chronic obstructive pulmonary disease. Patient is on 2 L nasal cannula at home and we will continue with the same management. 4. Diabetes mellitus is not controlled so yesterday we started 25 units of Lantus that we are going to increase to 40 and we will change the sliding scale insulin to Humalog high dose. 5. Hyperlipidemia. We will continue with the statin. 6. Depression. We are going to continue with home medications. 7. Hypertension. Blood pressure is under control. We will continue with the same management. 8. History of cerebrovascular accident. Aware. 9. Benign prostatic hypertrophy. We will continue with the same management. cc: Aniket Escobar MD
[2016-11-17] MEDS ORDERED: LASIX IV SCH (09:00)
[2016-11-17] MEDS: ALDACTONE PO SCH (09:04)
[2016-11-17] MEDS: LANOXIN PO SCH (09:04)
[2016-11-17] MEDS: TOPROL XL PO SCH ×2 (09:04→21:22)
[2016-11-17] MEDS: LIPITOR PO SCH (09:04)
[2016-11-17] MEDS: LANTUS SUBQ SCH (09:05)
[2016-11-17] MEDS: CAPOTEN PO SCH (09:05)
--- NOTE | 2016-11-17 12:09 | PROGRESS NOTE ---
DATE: 11/17/2016 SUBJECTIVE: The patient looks like he is having a flat affect. He does not report any shortness of breath or any fever or chills. OBJECTIVE: Vital Signs: Temperature 98.5 degrees, heart rate 88, respiratory 16, blood pressure 114/73. O2 saturation 98% on 2 L nasal cannula. General: This is a 61-year-old, looking older than his age, male, lying in bed, in no acute distress. HEENT: Head is normocephalic and atraumatic. Anicteric sclerae and pale conjunctivae. Mucous membranes moist. Neck supple. No JVD noted. No carotid bruits. No lymphadenopathy. No thyromegaly. Cardiovascular: S1, S2 heard. No murmurs, gallops, or rubs. Regular rate and rhythm. Respiratory: Decreased breath sounds in the right side base. The patient is not using any accessory muscles or having work of breathing. Abdomen is soft, nontender to palpation. Bowel sounds present. No organomegaly. Extremities: No clubbing, cyanosis, or edema. Peripheral pulses present in both legs. Neurologic: The patient alert and oriented x3. Able to move 4 extremities. Cranial nerves 2-12 grossly normal. LABORATORY DATA: The BMP shows glucose 305. The rest of the exam is normal. ASSESSMENT AND PLAN: 1. Acute systolic congestive heart failure. The patient clinically is fine. Because of low blood pressure, we have reduced the dosage of Lasix from 40 mg IV b.i.d. to 40 mg IV daily. It seems that the patient is responding to the therapy. Cardiology is also following this patient. Blood pressure is now more acceptable in the range of 100 to 1-teens systolic blood pressure. We will continue with the same management. 2. Left pleural effusion. The day before yesterday, we had drained 1.4 L of pleural fluid. What we are going to do today is check an x-ray, PA and lateral, to see if we can have the right side if needed. 3. Chronic obstructive pulmonary disease. The patient is on 2 L nasal cannula at home and is the same that he is requiring here. We will continue with the same management. 4. Uncontrolled diabetes mellitus. The patient is still having above 300 mg basal blood sugars, so we are going to stop IV steroids, and we will increase the dose of Lantus to 40 units daily and we will keep checking Accu-Cheks before meals and also at bedtime. 5. Hyperlipidemia. We will continue with the statin. 6. Depression. We are going to continue with home medication. 7. Hypertension. Blood pressure now is a little bit better. Of course, we are holding all blood pressure medications. We will continue with the same management. 8. History of cerebrovascular accident, aware. 9. Benign prostatic hypertrophy. We will continue with tamsulosin. cc: Aniket Escobar MD
--- NOTE | 2016-11-17 12:17 | Diag Imaging Result Document ---
PROCEDURE NAME: CHEST-2 VIEWS - 11/17/2016 UPRIGHT CHEST AP AND LATERAL TWO VIEWS: COMPARISON: 11/15/2016. FINDINGS: Poor inspiratory effort. There are small pleural effusions. Vascular distention is present. There may be underlying pneumonia in the left lung as well. Interval clearing of the infiltrates in the midright lung. Sternal wires are present. IMPRESSION: Interval improvement in the right lung, but mild worsening in the pulmonary edema and infiltrates in the left lung.
[2016-11-17] MEDS: ROCEPHIN 1 GM/NS 1 GM/50 ML IVPB IV SCH (21:21)
[2016-11-17] MEDS: FLOMAX PO SCH (21:22)
[2016-11-17] MEDS: CELEXA PO SCH (21:22)
[2016-11-17] MEDS: LASIX IV SCH (21:22)
[2016-11-18] MEDS: DUONEB (A & A) INH SCH ×6 (03:45→22:35)
[2016-11-18 05:41] LABS: AGAP 7; BUN 29 mg/dL (8-22); CALCIUM 8.4 mg/dL (8.8-10.2); CHLORIDE 95 mmol/L (98-107); COSMO 288; POTASSIUM 3.8 mmol/L (3.5-5.1); SODIUM 138 mmol/L (136-145); TCO2 36 mmol/L (25-35)
[2016-11-18] MEDS: PROTONIX PO SCH (06:21)
[2016-11-18] MEDS: HUMALOG SUBQ SCH ×4 (06:22→20:41)
[2016-11-18] MEDS: ALDACTONE PO SCH (08:57)
[2016-11-18] MEDS: LANTUS SUBQ SCH (08:57)
[2016-11-18] MEDS: LOVENOX SUBQ SCH (08:57)
[2016-11-18] MEDS: LASIX IV SCH ×2 (08:57→20:37)
[2016-11-18] MEDS: LIPITOR PO SCH (08:57)
[2016-11-18] MEDS: LANOXIN PO SCH (08:57)
[2016-11-18] MEDS: PLAVIX PO SCH (08:58)
[2016-11-18] MEDS: CAPOTEN PO SCH (08:58)
[2016-11-18] MEDS: TOPROL XL PO SCH ×2 (08:58→20:37)
[2016-11-18] MEDS ORDERED: LANTUS SUBQ ONE (09:45)
--- NOTE | 2016-11-18 13:21 | PROGRESS NOTE ---
DATE: 11/18/2016 SUBJECTIVE: Patient reports feeling fine. He reports that he was able to walk until the door. Denies any chest pain, any difficulty in breathing. OBJECTIVE: Vital Signs: Temperature 98.8 degrees, heart rate 92, respiratory rate 17, blood pressure 102/58, O2 saturation 99% on 2 L nasal cannula. General: This is a 61-year-old, looking older than his age, male, lying in bed, in no acute distress. HEENT: Head is normocephalic, atraumatic. Anicteric sclerae and pale conjunctivae. Mucous membranes moist. Neck: Supple. No JVD noted. No carotid bruits. No lymphadenopathy. No thyromegaly. Cardiovascular: S1, S2 heard. No murmurs, gallops, or rubs. Regular rate and rhythm. Respiratory: Decreased breath sounds in the right base. Patient is not using any accessory muscles or having work of breathing. Abdomen: Soft, nontender to palpation. Bowel sounds present. No organomegaly. Extremities: No clubbing, cyanosis, or edema. Peripheral pulses present in both legs. Neurological: Patient alert and oriented x3. Able to move 4 extremities. Cranial nerves II through XII grossly normal. LABORATORY DATA: The CBC is okay and BMP shows normal BMP except glucose 220. ASSESSMENT AND PLAN: 1. Acute systolic congestive heart failure. The patient is doing fine. The patient is on Lasix IV. Cardiology is following. We will continue with the same medications. 2. Left pleural effusion has been drained already and since then patient is doing fine. We will continue monitoring this patient closely. 3. Chronic obstructive pulmonary disease. Patient is on 2 L nasal cannula at home which is the same that he is requiring here so and we will continue with the same management. 4. Uncontrolled diabetes mellitus. We have started him on 40 units daily of Lantus but the glucose is still above 220 so what we are going to do is to increase the doses to 55 units daily and continue with Accu-Cheks every meal and at bedtime. 5. Hyperlipidemia. We will continue with the statin. 6. Depression. We are going to continue with home medications. 7. Hypertension. Blood pressure is much better. We are not going to giving him any blood pressure med. We will continue with the same management by now. 8. History of cerebrovascular accident, aware. 9. Benign prostatic hypertrophy, aware. cc: Aniket Escobar MD
[2016-11-18] MEDS: ZAROXOLYN PO SCH (13:49)
[2016-11-18] MEDS: ROCEPHIN 1 GM/NS 1 GM/50 ML IVPB IV SCH (20:37)
[2016-11-18] MEDS: FLOMAX PO SCH (20:37)
[2016-11-18] MEDS: CELEXA PO SCH (20:37)
[2016-11-19] MEDS: DUONEB (A & A) INH SCH ×6 (03:28→22:54)
[2016-11-19 05:16] LABS: AGAP 14; BUN 27 mg/dL (8-22); CALCIUM 9.1 mg/dL (8.8-10.2); CHLORIDE 93 mmol/L (98-107); COSMO 290; POTASSIUM 4.2 mmol/L (3.5-5.1); SODIUM 141 mmol/L (136-145); TCO2 34 mmol/L (25-35)
[2016-11-19] MEDS: PROTONIX PO SCH (06:17)
[2016-11-19] MEDS: HUMALOG SUBQ SCH ×4 (06:18→21:18)
[2016-11-19] MEDS ORDERED: INSULIN PEN NEEDLES ONE (08:18)
[2016-11-19] MEDS: LANOXIN PO SCH (08:23)
[2016-11-19] MEDS: LOVENOX SUBQ SCH (08:24)
[2016-11-19] MEDS: ZAROXOLYN PO SCH (08:24)
[2016-11-19] MEDS: LASIX IV SCH ×2 (08:24→20:57)
[2016-11-19] MEDS: PLAVIX PO SCH (08:24)
[2016-11-19] MEDS: LIPITOR PO SCH (08:25)
[2016-11-19] MEDS: TOPROL XL PO SCH ×2 (08:25→20:57)
[2016-11-19] MEDS: ALDACTONE PO SCH (08:25)
[2016-11-19] MEDS: CAPOTEN PO SCH (08:25)
[2016-11-19] MEDS ORDERED: LANTUS SUBQ SCH (09:00)
--- NOTE | 2016-11-19 13:18 | PROGRESS NOTE ---
DATE: 11/19/2016 SUBJECTIVE: Mr. Epperson has no complaints today. He has no shortness of breath presently. PHYSICAL EXAMINATION: Vital Signs: He is afebrile. Heart rate of 96, blood pressure 121/68. His I's and O's seem to continue to be negative over the course of this hospitalization. General: He is in no acute distress. Cardiovascular: He sounds to be in a regular rate and rhythm. He has no obvious murmurs. He has no S3. No lower extremity edema. Chest: Exam sounds clear with the exception of mild reduction in breath sounds in the bilateral bases. PERTINENT DATA: Sodium 141, potassium 4.2, BUN 27, creatinine 0.9. ASSESSMENT: Acute systolic heart failure. PLAN: I have stopped his captopril and placed him on lisinopril 5 mg b.i.d. I have increased his Aldactone to 25 daily. I will check a basic metabolic panel, as well as a proBNP in the morning. I will check a chest x-ray tomorrow as well as to re-evaluate his effusions. cc: Jhony Segundo MD
--- NOTE | 2016-11-19 17:03 | PROGRESS NOTE ---
DATE: 11/19/2016 SUBJECTIVE: Patient reports feeling fine. He reports able to walk around the halls. He denies any chest pain, fever, chills, or difficulty in breathing. OBJECTIVE: Vital Signs: Temperature 98.1 degrees, heart rate 96, respiratory rate 18, blood pressure 121/60, O2 saturation 100% on 2 L nasal cannula. General: This is a 58-year-old, male looking older than his age, lying in bed, in no acute distress. HEENT: Head is normocephalic, atraumatic. Anicteric sclerae and pale conjunctivae. Mucous membranes moist. Neck: Supple. No JVD noted. No carotid bruits. No lymphadenopathy. No thyromegaly. Cardiovascular Examination: S1, S2 heard. No murmurs, gallops, or rubs. Regular rate and rhythm. Respiratory Examination: Clear bilaterally to auscultation. No work of breathing or using accessory muscles. Abdomen: Soft, nontender to palpation. Bowel sounds present. No organomegaly. Extremities: No clubbing, cyanosis or edema. Peripheral pulses present in both legs. Neurological examination: Patient is alert and oriented x3. Able to move 4 extremities. Cranial nerves 2-12 grossly normal. LABORATORY DATA: Reviewed. ASSESSMENT AND PLAN: 1. Acute systolic congestive heart failure. Patient is on Lasix. He was on captopril that was changed to lisinopril as per Cardiology. We will follow their recommendations. 2. Left pleural effusion. That has been read already and patient is doing fine. We are going to check chest x-ray tomorrow. 3. Chronic obstructive pulmonary disease. Patient is on 2 L nasal cannula at home which is the same that he is wearing here so he is at his baseline. We will continue with the same management. We will continue with nebulizations as he is doing at home. 4. Uncontrolled diabetes mellitus. Finally after we increased the dose of Lantus with 55 units of Lantus we are able to control the issue of blood sugars to less than 200. I will definitely increase the dose of this medication to 60 units daily and we will continue checking Accu-Cheks every meal and also at bedtime. 5. Hyperlipidemia. Patient is on home medications. 6. Depression. Patient is on home medications. 7. Hypertension. Blood pressure is definitely much better. We will continue following recommendations from Cardiology. 8. History of cerebrovascular accident. Aware. 9. Benign prostatic hypertrophy. Aware. cc: Aniket Escobar MD
[2016-11-19] MEDS: ROCEPHIN 1 GM/NS 1 GM/50 ML IVPB IV SCH (20:57)
[2016-11-19] MEDS: FLOMAX PO SCH (20:57)
[2016-11-19] MEDS: CELEXA PO SCH (20:57)
[2016-11-19] MEDS: PRINIVIL PO SCH (20:59)
[2016-11-20] MEDS: DUONEB (A & A) INH SCH ×6 (03:01→22:52)
[2016-11-20 05:22] LABS: AGAP 13; BUN 31 mg/dL (8-22); CALCIUM 8.9 mg/dL (8.8-10.2); CHLORIDE 90 mmol/L (98-107); COSMO 287; POTASSIUM 3.8 mmol/L (3.5-5.1); SODIUM 135 mmol/L (136-145); TCO2 32 mmol/L (25-35)
[2016-11-20] MEDS: PROTONIX PO SCH (06:00)
[2016-11-20] MEDS: HUMALOG SUBQ SCH ×4 (06:00→22:07)
[2016-11-20] MEDS: PRINIVIL PO SCH ×2 (09:14→22:08)
[2016-11-20] MEDS: TOPROL XL PO SCH ×2 (09:14→22:08)
[2016-11-20] MEDS: PLAVIX PO SCH (09:15)
[2016-11-20] MEDS: ZAROXOLYN PO SCH (09:15)
[2016-11-20] MEDS: LANTUS SUBQ SCH (09:16)
[2016-11-20] MEDS: LASIX IV SCH (09:18)
[2016-11-20] MEDS: LOVENOX SUBQ SCH (09:18)
[2016-11-20] MEDS: ALDACTONE PO SCH (09:18)
[2016-11-20] MEDS: LIPITOR PO SCH (09:18)
[2016-11-20] MEDS: LANOXIN PO SCH (09:20)
--- NOTE | 2016-11-20 11:16 | Diag Imaging Result Document ---
PROCEDURE NAME: CHEST-PORTABLE - 11/20/2016 PORTABLE CHEST X-RAY: COMPARISON: 11/17/2016. FINDINGS: There is layering hazy opacity in the right lung base suggesting a pleural effusion which has probably re-distributed from the prior exam. There is significant improvement in the pulmonary vascular congestion and pulmonary edema. Stable mild cardiomegaly. No new or focal infiltrates. IMPRESSION: Significant improvement from prior. Re-distribution in the right basilar pleural effusion.
[2016-11-20 12:16] LABS: AGAP 14; BUN 31 mg/dL (8-22); CALCIUM 9.4 mg/dL (8.8-10.2); CHLORIDE 86 mmol/L (98-107); COSMO 279; POTASSIUM 3.7 mmol/L (3.5-5.1); SODIUM 132 mmol/L (136-145); TCO2 32 mmol/L (25-35)
--- NOTE | 2016-11-20 12:48 | PROGRESS NOTE ---
DATE: 11/20/2016 SUBJECTIVE: This patient states that he is feeling better. He is alert and oriented x3. He is able to walk. He denies any chest pain, fever, chills, or shortness of breath. Family members are at the bedside. OBJECTIVE: Vital Signs: Temperature 97.7 degrees, pulse 92, respiratory rate 16, blood pressure 96/61, oxygen saturation 96% on 3L of nasal cannula. HEENT: Head normocephalic. No trauma. PERRLA. Neck: Supple. No JVD. No masses. Central trachea. Cardiovascular: RRR. No murmurs. Chest: Clear to auscultation. No wheezing. No rales. Abdomen: Soft, nontender, nondistended. Positive bowel sounds. Extremities: No clubbing. No cyanosis. No edema. Neurological: The patient is alert and oriented x3. Moves all 4 extremities. LABORATORY: Sodium 135, potassium 3.8, chloride 90, bicarbonate 32, BUN 31, creatinine 0.8, glucose 285, calcium 8.9. ASSESSMENT AND PLAN: 1. Acute systolic heart failure exacerbation. Cardiology Department is following this patient. They have been changing and adjusting his medications. We will continue following their recommendations. 2. Left pleural effusion. We asked for an x-ray today that was already taking, pending final report. 3. History of chronic obstructive pulmonary chronic obstructive pulmonary disease. We will continue with oxygen supplementation. The patient is using 2L of nasal cannula at home, as well. 4. Uncontrolled diabetes. I will increase the dose of Lantus from 55 to 65 and I will continue to monitor. 5. Hyperlipidemia. Continue with home medications. 6. Depression. Continue with home medication. 7. Hypertension, controlled. Cardiology Department is on board. Continue following their recommendations. 8. History of cerebrovascular accident. Aware. 9. Benign prostatic hypertrophy. Aware. cc: Deejay Rg MD
--- NOTE | 2016-11-20 15:49 | PALLIATIVE CARE CONSULTATION ---
DATE: 11/20/2016 REQUESTING PHYSICIAN: Dr. Rueda. REASON FOR CONSULTATION: Goals of care. HISTORY OF PRESENT ILLNESS: This is a 61-year-old male with a past medical history of ischemic cardiomyopathy with a recent ejection fraction of 45-50%, hypertension , diabetes mellitus, chronic pain, CVA, depression and COPD requiring home O2. He was most recently admitted on 11/14/2016 after presenting to the ED via EMS with complaints of worsening shortness of breath. His states that he had also noticed in the days prior to this admission that he was experiencing edema to his lower extremities. Mr. Epperson has had multiple admissions for his heart failure over the last 6 months. His states that she feels like he is getting weaker. He requires assistance with his activities of daily living. He does ambulate with a walker at home but states that he becomes very short of breath when walking. It is of note that he was recently discharged from [facility] facility on November 16 where he was sent for weakness related to a non-STEMI. His is at the bedside and states that she understands the importance of sodium and fluid restriction. However they do not follow that diet all the time. She does state that he is compliant with his medications. She is working to find him a primary care provider. She states that she has made multiple appointments but have not been able to take him to those appointments due to transportation issues. Currently Mr. Epperson is lying in the hospital bed. He has a flat affect. He is able to answer my questions but does not actively participate in conversation. He denies shortness of breath, chest pain. He states that he has ambulated with PT since admission and feels short of breath when doing so. He states that his appetite is good. He denies nausea. The palliative care team has been consulted to assist with goals of care. REVIEW OF SYSTEMS: Twelve point review of systems has been conducted and otherwise negative except those mentioned in the HPI. PAST MEDICAL HISTORY: 1. Ischemic cardiomyopathy with a recent ejection fraction of 45-50%. 2. Hypertension. 3. Diabetes mellitus. 4. Chronic pain. 5. CVA. 6. Depression. 7. COPD requiring home O2. SOCIAL HISTORY: Prior to this admission he lived locally with his . He is a past smoker. Alcohol and drug use have been denied. FAMILY HISTORY: Positive for CHF in his father who is , mother from an unknown type of cancer. Brother is from [place]. PHYSICAL EXAM: General: This is a 61-year-old male who does not appear to be in any acute distress. He does have a flat affect. HEENT: Atraumatic, normocephalic. Neck: Trachea is midline. Cardiovascular: Regular rate and rhythm. Pulmonary: Lung sounds are diminished. Respirations are nonlabored. Abdomen: Soft. Bowel sounds are active. Extremities: Pulses are palpable. Skin: Warm and dry. IMPRESSION: This is a 61-year-old male with past medical history as listed above in the history of present illness. I met with the patient and his to discuss goals of care. I feel like Mr. Epperson is appropriate for the outpatient palliative care program. That program was explained to the patient and his and they are agreeable to that program. It appears that Mr. Epperson's palliative performance scale is 50%. The states she is working to set Mr. Epperson up with a primary care provider. Plan at this point is to discharge to [facility] for rehab services. The outpatient palliative care program contact Mr. Epperson once he is home from rehab. I did discuss advanced directive and power of county attorney with Mr. Epperson. He voiced that he would like to be a full code. He does not have a power of county attorney. As mentioned he does not have any acute complaints at this time. The palliative care team will continue to follow. Thank you for this consultation. Dictated by JASON Sierra for Ronni Lovett MD cc: JASON Sierra MD [facility]
[2016-11-20] MEDS ORDERED: SAMSCA PO ONE (16:39)
--- NOTE | 2016-11-20 16:55 | PROGRESS NOTE ---
DATE: 11/20/2016 SUBJECTIVE: Mr. Epperson has no complaints today. PHYSICAL EXAMINATION: He is afebrile. Heart rate is 75. His blood pressure is 100/62 most recently. Systolics run anywhere from the 90s to 110s. His I's and O's continue to be negative over the course of the hospitalization. General: No acute distress. Cardiovascular: He sounds to be in a regular rate and rhythm. He has no obvious murmurs. He has no lower extremity edema. Chest: Exam is clear to auscultation bilaterally. He has no increased work of breathing. Abdomen: Soft, nontender, nondistended. He has no obvious organomegaly. Skin Exam: Warm and dry throughout. PERTINENT DATA: His sodium is 132, potassium 3.7. His BUN is 31, creatinine 0.8. ProBNP is 2808. ASSESSMENT: Acute systolic heart failure. PLAN: Volume status seems better based on chest x-ray and proBNP which were both improved. His sodium is 132 today. I will plan on dosing him with Samsca 15 mg today with a goal to swap him over to oral Lasix in the morning. I will stop his metolazone. We will check a BMP in the morning. I believe he is approaching the point for discharge. He has had escalation in his medications with the increase of his spironolactone to 25 mg daily, increase in his lisinopril to 5 mg b.i.d. and increasing his Lasix from 40 mg daily to 40 mg b.i.d. cc: Jhony Segundo MD
[2016-11-20] MEDS: CELEXA PO SCH (22:06)
[2016-11-20] MEDS: FLOMAX PO SCH (22:06)
[2016-11-20] MEDS: ROCEPHIN 1 GM/NS 1 GM/50 ML IVPB IV SCH (22:07)
[2016-11-21] MEDS: DUONEB (A & A) INH SCH ×6 (02:55→22:30)
[2016-11-21] MEDS: HUMALOG SUBQ SCH ×4 (06:10→21:38)
[2016-11-21] MEDS: PROTONIX PO SCH (06:10)
[2016-11-21 06:31] LABS: MANUAL DIFF NEEDED? NO
[2016-11-21 06:47] LABS: BASO% 0.2 % (0.0-0.8); EOS# 0.07 X1000 (0.0-0.7); EOS% 0.6 % (0.0-10.0); HEMATOCRIT 41.3 % (42.0-52.0); HEMOGLOBIN 13.7 g/dL (14.0-18.0); IMM GRAN# 0.03 X1000 (0.0-0.04); IMM GRAN% 0.3 % (0.0-0.5); LYMPH% 26.2 % (20.5-51.1); MCHC 33.2 g/dL (33-37); MCV 87.5 FL (81-99); MONO# 1.12 X1000 (0.11-0.59); MONO% 10.1 % (1.7-9.3); MPV 11.8 FL (7.4-10.4); NEUT% 62.6 % (42.2-75.2); PLT 222 X1000 (130-400); RBC 4.72 XMIL (4.7-6.1)
[2016-11-21 07:33] LABS: AGAP 13; ALBUMIN 3.3 g/dL (3.5-5.0); ALKALINE PHOSPHATASE 68 U/L (32-122); BUN 43 mg/dL (8-22); CALCIUM 8.8 mg/dL (8.8-10.2); CHLORIDE 87 mmol/L (98-107); COSMO 279; GOT 12 U/L (10-34); GPT 10 U/L (10-44); POTASSIUM 3.8 mmol/L (3.5-5.1); SODIUM 133 mmol/L (136-145); TCO2 33 mmol/L (25-35); TOTAL BILIRUBIN 0.68 mg/dL (0.20-1.00); TOTAL PROTEIN 7.1 g/dL (6.3-8.3)
[2016-11-21] MEDS: ALDACTONE PO SCH (09:47)
[2016-11-21] MEDS: LIPITOR PO SCH (09:47)
[2016-11-21] MEDS: PLAVIX PO SCH (09:47)
[2016-11-21] MEDS: TOPROL XL PO SCH ×2 (09:48→21:37)
[2016-11-21] MEDS: LASIX PO SCH ×2 (09:48→21:38)
[2016-11-21] MEDS: PRINIVIL PO SCH ×2 (09:48→21:38)
[2016-11-21] MEDS: LANTUS SUBQ SCH (09:49)
[2016-11-21] MEDS: LANOXIN PO SCH (09:49)
[2016-11-21] MEDS: LOVENOX SUBQ SCH (09:50)
--- NOTE | 2016-11-21 12:22 | PROGRESS NOTE ---
DATE: 11/21/2016 SUBJECTIVE: This patient states that he is feeling better. He is alert and oriented x3. This patient was walking with physical therapy. He just came back. He is still complaining of lower extremity weakness and soreness. He denies any chest pain. No fever. No chills. No shortness of breath at this moment. No family members at the bedside. This patient had a swallow evaluation done and apparently this patient has been choking. He has a history of CVA and the swallow evaluation team has recommended a modified barium swallow. OBJECTIVE: Vital Signs: Temperature 97.5 degrees, pulse 96, respiratory rate 16, blood pressure 103/63, and oxygen saturation 99% on room air. HEENT: Head normocephalic. No trauma. PERRLA. Neck: Supple. No JVD. No masses. Central trachea. Cardiovascular: RRR. No murmurs. Chest: Clear to auscultation. No wheezing. No rales. Abdomen: Soft, nontender, nondistended. No hepatosplenomegaly. Positive bowel sounds. Extremities: No edema. No clubbing. No cyanosis. Neurological: No changes. LABORATORY: WBC 11.06, hemoglobin 13.7, hematocrit 41.3, platelet 222,000. Sodium 133, potassium 3.8, chloride 87, bicarbonate 33, BUN 43, creatinine 1, glucose 139, calcium 8.8, albumin 3.3. ASSESSMENT AND PLAN: 1. Acute systolic heart failure exacerbation. Cardiology Department is following this patient. They have been changing and adjusting his medication. We will continue to follow their recommendations. This patient is not complaining today of shortness of breath or chest pain. 2. Left pleural effusion. This is getting much better. There is a significant improvement from prior x-rays. 3. History of chronic obstructive pulmonary disease. We will continue with oxygen supplementation. He is using oxygen at home, as well. 4. Uncontrolled diabetes. The dose of Lantus was increased yesterday from 55 to 65. It looks better controlled today. We will continue to monitor. 5. Dysphagia. The swallow evaluation team evaluated this patient and they have recommended a modified barium swallow. 6. Hyperlipidemia. Continue with home medication. 7. Depression. Continue with home medication. 8. Hypertension, controlled. Cardiology Department is on board. Continue following their recommendations. 9. History of cerebrovascular accident. Aware. 10. Benign prostatic hypertrophy. Continue to monitor. cc: Deejay Rg MD
--- NOTE | 2016-11-21 14:03 | Diag Imaging Result Document ---
PROCEDURE NAME: BA SWALLOW W/VIDEO SPEECH THER - 11/21/2016 MODIFIED BARIUM SWALLOW: FINDINGS: The patient was given liquid barium to drink from a cup via a straw by speech pathologist, and the swallowing mechanism was observed fluoroscopically in the lateral projection. The patient was able to perform single swallows of the barium without substantial difficulty. There was transient laryngeal penetration with 1 of the swallows when the patient performed rapid sequence swallowing. There was no aspiration observed. There is mild extrinsic impression upon the posterior margin of the cervical esophagus by anterior cervical spine osteophytes at C5-6 noted. Limited evaluation of the thoracic esophagus showed rapid clearance of swallowed barium from the esophagus into the stomach. [facility]
[2016-11-21] MEDS ORDERED: SAMSCA PO ONE (14:14)
--- NOTE | 2016-11-21 15:40 | PROGRESS NOTE ---
DATE: 11/21/2016 SUBJECTIVE: Mr. Epperson denies any issues with shortness of breath. He reports he is breathing much better. OBJECTIVE: Vital Signs: He is afebrile. Heart rate of 96, blood pressure 103/63. Input and Output: His inputs and outputs continue to be negative. Overall, generally he is in no acute distress. Cardiovascular: He is in a regular rate and rhythm. He has no obvious murmurs. No S3. Extremities: No lower extremity edema. Chest examination: Sounds much clearer. He has no increased work of breathing. Abdomen: Soft and nontender. PERTINENT DATA: His white count 11, his hematocrit is 41, platelet count is 222,000. Sodium 133, potassium 3.8, BUN 43, creatinine 1.0. ASSESSMENT: Acute heart failure. PLAN: The patient seems to be doing much better at this point. We will continue on current medications. He certainly has had escalation in his therapy, including increasing his diuretic in the form of Lasix as well as spironolactone, and increase in his lisinopril and metoprolol. His sodium is a little bit low and his BUN and creatinine ratio is elevated. I believe he is a little bit groggy based on these readings. He has been switched over to oral diuretics, so I believe he will re-equilibrate on that. I have no further recommendations on this patient. I believe he is stable for discharge home. cc: Jhony Segundo MD
[2016-11-21] MEDS: CELEXA PO SCH (21:37)
[2016-11-21] MEDS: FLOMAX PO SCH (21:37)
[2016-11-21] MEDS: ROCEPHIN 1 GM/NS 1 GM/50 ML IVPB IV SCH (21:37)
[2016-11-22] MEDS: DUONEB (A & A) INH SCH ×2 (02:30→07:13)
[2016-11-22] MEDS: HUMALOG SUBQ SCH (06:27)
[2016-11-22] MEDS: PROTONIX PO SCH (06:27)
[2016-11-22 06:30] LABS: MANUAL DIFF NEEDED? NO
[2016-11-22 06:32] LABS: BASO% 0.4 % (0.0-0.8); EOS# 0.12 X1000 (0.0-0.7); EOS% 1.5 % (0.0-10.0); HEMATOCRIT 40.6 % (42.0-52.0); HEMOGLOBIN 13.5 g/dL (14.0-18.0); IMM GRAN# 0.02 X1000 (0.0-0.04); IMM GRAN% 0.2 % (0.0-0.5); LYMPH% 30.5 % (20.5-51.1); MCH 29.2 PG (27-31); MCHC 33.3 g/dL (33-37); MCV 87.7 FL (81-99); MONO# 1.01 X1000 (0.11-0.59); MONO% 12.3 % (1.7-9.3); MPV 11.3 FL (7.4-10.4); NEUT% 55.1 % (42.2-75.2); PLT 197 X1000 (130-400); RBC 4.63 XMIL (4.7-6.1)
[2016-11-22 06:58] LABS: AGAP 12; BUN 35 mg/dL (8-22); CHLORIDE 92 mmol/L (98-107); COSMO 288; POTASSIUM 4.1 mmol/L (3.5-5.1); SODIUM 137 mmol/L (136-145); TCO2 33 mmol/L (25-35)
[2016-11-22] MEDS: LIPITOR PO SCH (08:49)
[2016-11-22] MEDS: PLAVIX PO SCH (08:49)
[2016-11-22] MEDS: LANOXIN PO SCH (08:49)
[2016-11-22] MEDS: LOVENOX SUBQ SCH (08:49)
[2016-11-22] MEDS: LANTUS SUBQ SCH ×2 (08:55→10:51)
[2016-11-22] MEDS ORDERED: INSULIN PEN NEEDLES ONE (10:48)
[2016-11-22 12:04] VITALS: BP 92/54
--- NOTE | 2016-11-23 07:09 | DISCHARGE SUMMARY ---
ADMISSION DATE: 11/14/2016 DISCHARGE DATE: 11/22/2016 CONSULTATIONS: 1. Dr. Jhony Segundo with cardiology. 2. Jennifer Faulkner with palliative care. PERTINENT PROCEDURES: 1. CT of the chest showed no change from prior pulmonary edema, cardiomegaly and moderately large pleural effusion. 2. Echocardiogram limited in views showed no pericardial effusion with an EF of 45-50% with akinesis of the inferior wall and significant impairment of the posterolateral segment. 3. Modified barium swallow that showed erratic esophagus with rapid clearance of the swallow of barium from the esophagus into the stomach. DISCHARGE DIAGNOSES: 1. Acute systolic heart failure exacerbation with medication adjustments as per cardiology, improving. 2. Left pleural effusion. This is improving. 3. Chronic obstructive pulmonary disease continue with home O2. 4. Uncontrolled diabetes. His Lantus was increased from 55-65. 5. Dysphasia with a normal modified barium swallow. 6. Hyperlipidemia. Continue with home medications. 7. Depression. Continue home medications. 8. Hypertension controlled. 9. Cerebrovascular accident history aware. 10. Benign prostatic hypertrophy continue home medications. HOSPITAL COURSE: Mr. Epperson is a 61-year-old, male with a history of a recent acute DC that was a NSTEMI, hypertension, diabetes mellitus type 2, CVA history, congestive heart failure who wears home O2. Patient came to the ED with shortness of breath despite wearing his home oxygen. He was recently discharged from [facility] and rehab secondary to weakness from his NSTEMI. He has had a nonproductive cough, fever and chills. Chest x-ray showed CHF versus pneumonia, and a CT of the chest showed pulmonary edema and cardiomegaly and moderately large bilateral pleural effusions. He received 80 of Lasix in the ED. He was continued with 40 of Lasix daily with a cardiology consult. He was continued on his home O2 as well as IV steroids and inhaled bronchodilators and prophylactic antibiotics, and they planned on a thoracentesis. Due to the patient's limited blood pressure to work with to titrate his medications, he remained on his IV Lasix b.i.d. Patient did undergo a thoracentesis performed by Dr. Hays where 1400 mL of dark yellow fluid, which was clear, nonopaque, was withdrawn and sent for studies. There was no complications from the procedure. His IV Lasix was decreased to 40 mg IV daily. Cardiology was able to adjust patient's medications for titration. His Captopril was stopped. He was placed on lisinopril b.i.d. I increased his Aldactone. Patient also underwent a palliative care consult for goals of care. They felt that he was appropriate for outpatient palliative care program. He and his were agreeable to that program. Patient's fluid volume status based on chest x-ray and ProBNP were both improved. Patient did have a low sodium and was dosed with Samsca and switched to oral Lasix. Patient was complaining of some dysphagia. He underwent evaluation with a modified barium swallow that showed rapid clearance of swallowed barium from the esophagus into the stomach. The patient did have escalation of therapy for his heart failure including increasing his diuretic in the form of Lasix as well as spironolactone. Increased his lisinopril and metoprolol. Improvement in his sodium. Cardiology felt the patient was stable for discharge, as well as Dr. Cespedes. FOLLOWUP: The patient is being discharged today with home health and will be followed by palliative care as an outpatient. VITAL SIGNS: Temperature 98.5 degrees, heart rate 88, respirations 16, blood pressure is 114/67, O2 of 2 L 99% on 2 L nasal cannula. DISCHARGE MEDICATIONS: 1. Lipitor 80 mg p.o. daily. 2. Citalopram 10 mg p.o. at bedtime. 3. Plavix 75 mg p.o. daily. 4. Digoxin 125 mcg p.o. daily. 5. Lasix 40 mg p.o. b.i.d. 6. Lantus 65 units subcutaneous q.a.m. 7. Prinivil 5 mg p.o. b.i.d. 8. Toprol-XL 25 mg p.o. b.i.d. 9. Oxycodone 15 mg p.o. p.r.n. 10. Aldactone 12.5 mg p.o. daily. 11. Flomax 0.4 mg p.o. at bedtime. FOLLOWUP: Patient is being discharged home with home health. He can follow up with his primary care physician, as well as electrical instrument maker on outpatient basis. Patient can return to the ED with any worsening of symptoms. DISCHARGE TIME: 30 minutes. Dictated by JASON Willis for Deejay Rg MD cc: Deejay Rg MD
== END 2016-11-22 14:19 | disposition home health service (06) ==
LOC: ED 07:11 → SUATTDRO 16:06 → DIRADM 16:06 → 3S 18:35 → 4N 11-20 10:13
PROVIDERS: ATTEND Internal Medicine

== ENCOUNTER 2017-01-15 14:32 | Inpatient (IN) ==
[2017-01-15 19:37] LABS: MANUAL DIFF NEEDED? NO
[2017-01-15 19:44] LABS: BASO% 0.7 % (0.0-0.8); EOS% 1.4 % (0.0-10.0); HEMATOCRIT 43.7 % (42.0-52.0); HEMOGLOBIN 13.9 g/dL (14.0-18.0); LYMPH# 1.83 X1000 (1.2-3.4); LYMPH% 25.7 % (20.5-51.1); MCH 28.8 PG (27-31); MCHC 31.8 g/dL (33-37); MCV 90.5 FL (81-99); MONO# 0.64 X1000 (0.11-0.59); MPV 11.2 FL (7.4-10.4); NEUT% 63.2 % (42.2-75.2); PLT 232 X1000 (130-400); RBC 4.83 XMIL (4.7-6.1)
[2017-01-15 20:04] LABS: AGAP 8; ALBUMIN 3.5 g/dL (3.5-5.0); ALKALINE PHOSPHATASE 99 U/L (32-122); BUN 11 mg/dL (8-22); CHLORIDE 95 mmol/L (98-107); COSMO 286; GOT 15 U/L (10-34); GPT 17 U/L (10-44); POTASSIUM 3.5 mmol/L (3.5-5.1); SODIUM 139 mmol/L (136-145); TCO2 36 mmol/L (25-35); TOTAL BILIRUBIN 0.61 mg/dL (0.20-1.00); TOTAL PROTEIN 6.6 g/dL (6.3-8.3)
[2017-01-15 21:19] LABS: ALLEN TEST YES; BE 10.6 mmoll (-3.0-3.0); BLOOD TYPE ARTERIAL; DRAW SITE R RADIAL; METHB 1.1 % (0.0-1.5); O2(CT) 17.1 mL/dL (15.0-23.0); PO2(98.6) 54 mmHg (60-100); SAMPLE BLOOD; SAO2 91.2 % (95.0-100.0); THB 13.9 g/dL (11.5-17.4); pH(98.6) 7.46 (7.35-7.45)
[2017-01-15 21:20] LABS: MODALITY ROOM AIR
[2017-01-15 21:24] LABS: PCO2(98.6) 51 mmHg (35-45)
[2017-01-15 21:39] LABS: HDL 43 mg/dL (35-55); LDL 72 mg/dL; TRIGLYCERIDES 88 mg/dL (39-160); VLDL 18 mg/dL
[2017-01-15 21:57] LABS: HEMOGLOBIN A1C 8.4 % (4.8-6.0)
[2017-01-16 07:03] LABS: MANUAL DIFF NEEDED? NO
[2017-01-16 07:09] LABS: BASO% 0.4 % (0.0-0.8); EOS# 0.13 X1000 (0.0-0.7); EOS% 1.8 % (0.0-10.0); HEMATOCRIT 39.1 % (42.0-52.0); HEMOGLOBIN 12.6 g/dL (14.0-18.0); LYMPH# 2.01 X1000 (1.2-3.4); LYMPH% 28.6 % (20.5-51.1); MCHC 32.2 g/dL (33-37); MCV 89.9 FL (81-99); MONO# 0.79 X1000 (0.11-0.59); MONO% 11.2 % (1.7-9.3); MPV 11.5 FL (7.4-10.4); PLT 200 X1000 (130-400); RBC 4.35 XMIL (4.7-6.1)
[2017-01-16 07:24] LABS: AGAP 8; BUN 9 mg/dL (8-22); CALCIUM 8.5 mg/dL (8.8-10.2); CHLORIDE 97 mmol/L (98-107); COSMO 279; POTASSIUM 3.1 mmol/L (3.5-5.1); SODIUM 139 mmol/L (136-145); TCO2 34 mmol/L (25-35)
[2017-01-16 20:05] LABS: URINE CULTURE NEEDED? NO; URINE MICRO REVIEW NEEDED? NO; URINE SOURCE CATH
[2017-01-16 20:23] LABS: BILIRUBIN URINE NEGATIVE (NEGATIVE); BLOOD URINE NEGATIVE (NEGATIVE); COLOR YELLOW; GLUCOSE URINE NEGATIVE (NEGATIVE); LEUKOCYTES URINE NEGATIVE (NEGATIVE); NITRITE URINE NEGATIVE (NEGATIVE); PH URINE 8.5; PROTEIN URINE NEGATIVE (NEGATIVE); SP GRAVITY URINE 1.012; TURBIDITY URINE CLEAR (CLEAR); UROBILINOGEN URINE 3 mg/dL (NORMAL)
[2017-01-16 20:25] LABS: UR EPITHELIAL CELLS <10 /HPF (<10); URINE BACTERIA NEGATIVE /HPF; URINE RBC <10 /HPF (<10); URINE WBC <10 /HPF (<10)
[2017-01-17 05:40] LABS: MANUAL DIFF NEEDED? NO
[2017-01-17 05:48] LABS: BASO% 0.5 % (0.0-0.8); EOS% 1.2 % (0.0-10.0); HEMATOCRIT 44.1 % (42.0-52.0); HEMOGLOBIN 14.2 g/dL (14.0-18.0); IMM GRAN# 0.02 X1000 (0.0-0.04); IMM GRAN% 0.2 % (0.0-0.5); LYMPH# 2.69 X1000 (1.2-3.4); LYMPH% 31.4 % (20.5-51.1); MCH 28.7 PG (27-31); MCHC 32.2 g/dL (33-37); MCV 89.1 FL (81-99); MONO# 0.96 X1000 (0.11-0.59); MONO% 11.2 % (1.7-9.3); MPV 11.2 FL (7.4-10.4); NEUT% 55.5 % (42.2-75.2); PLT 227 X1000 (130-400); RBC 4.95 XMIL (4.7-6.1)
[2017-01-17 06:03] LABS: INR 1.19; PROTIME 12.6 Seconds (9.2-11.7); PTT 31.1 Seconds (22.0-36.0)
[2017-01-17 06:48] LABS: AGAP 13; BUN 10 mg/dL (8-22); CALCIUM 8.7 mg/dL (8.8-10.2); CHLORIDE 98 mmol/L (98-107); COSMO 282; POTASSIUM 3.8 mmol/L (3.5-5.1); SODIUM 143 mmol/L (136-145); TCO2 32 mmol/L (25-35)
[2017-01-17 12:05] LABS: DIFF NEEDED? YES; MONOS 40 %; POLYS 60 %; WBC BF 913 /cumm
[2017-01-18 06:44] LABS: MANUAL DIFF NEEDED? NO
[2017-01-18 07:02] LABS: BASO% 0.5 % (0.0-0.8); EOS# 0.12 X1000 (0.0-0.7); EOS% 1.5 % (0.0-10.0); HEMATOCRIT 43.6 % (42.0-52.0); HEMOGLOBIN 13.9 g/dL (14.0-18.0); LYMPH# 2.25 X1000 (1.2-3.4); LYMPH% 28.6 % (20.5-51.1); MCH 28.9 PG (27-31); MCHC 31.9 g/dL (33-37); MCV 90.6 FL (81-99); MONO# 1.01 X1000 (0.11-0.59); MONO% 12.8 % (1.7-9.3); MPV 11.4 FL (7.4-10.4); NEUT% 56.6 % (42.2-75.2); PLT 234 X1000 (130-400); RBC 4.81 XMIL (4.7-6.1)
[2017-01-18 07:13] LABS: AGAP 7; BUN 18 mg/dL (8-22); CALCIUM 8.9 mg/dL (8.8-10.2); CHLORIDE 98 mmol/L (98-107); COSMO 289; SODIUM 141 mmol/L (136-145); TCO2 36 mmol/L (25-35)
[2017-01-19 07:39] LABS: MANUAL DIFF NEEDED? NO
[2017-01-19 07:43] LABS: BASO% 0.5 % (0.0-0.8); EOS# 0.18 X1000 (0.0-0.7); HEMATOCRIT 43.4 % (42.0-52.0); HEMOGLOBIN 13.8 g/dL (14.0-18.0); IMM GRAN# 0.02 X1000 (0.0-0.04); IMM GRAN% 0.2 % (0.0-0.5); LYMPH# 2.14 X1000 (1.2-3.4); LYMPH% 24.1 % (20.5-51.1); MCH 28.5 PG (27-31); MCHC 31.8 g/dL (33-37); MCV 89.7 FL (81-99); MONO# 0.87 X1000 (0.11-0.59); MONO% 9.8 % (1.7-9.3); MPV 11.4 FL (7.4-10.4); NEUT% 63.4 % (42.2-75.2); PLT 223 X1000 (130-400); RBC 4.84 XMIL (4.7-6.1)
[2017-01-19 08:08] LABS: AGAP 9; BUN 20 mg/dL (8-22); CALCIUM 8.6 mg/dL (8.8-10.2); CHLORIDE 96 mmol/L (98-107); COSMO 287; POTASSIUM 3.9 mmol/L (3.5-5.1); SODIUM 138 mmol/L (136-145); TCO2 33 mmol/L (25-35)
[2017-01-20 05:27] VITALS: BP 108/55
[2017-01-20 06:48] LABS: MANUAL DIFF NEEDED? NO
[2017-01-20 06:56] LABS: BASO% 0.4 % (0.0-0.8); EOS# 0.19 X1000 (0.0-0.7); EOS% 2.2 % (0.0-10.0); HEMOGLOBIN 14.3 g/dL (14.0-18.0); IMM GRAN# 0.02 X1000 (0.0-0.04); IMM GRAN% 0.2 % (0.0-0.5); LYMPH# 2.12 X1000 (1.2-3.4); LYMPH% 24.9 % (20.5-51.1); MCH 28.4 PG (27-31); MCHC 31.8 g/dL (33-37); MCV 89.5 FL (81-99); MONO# 0.93 X1000 (0.11-0.59); MONO% 10.9 % (1.7-9.3); MPV 11.2 FL (7.4-10.4); NEUT% 61.4 % (42.2-75.2); PLT 215 X1000 (130-400); RBC 5.03 XMIL (4.7-6.1)
[2017-01-20 07:40] LABS: AGAP 10; BUN 19 mg/dL (8-22); CALCIUM 8.8 mg/dL (8.8-10.2); CHLORIDE 97 mmol/L (98-107); COSMO 281; POTASSIUM 4.3 mmol/L (3.5-5.1); SODIUM 140 mmol/L (136-145); TCO2 33 mmol/L (25-35)
== END 2017-01-20 15:18 | disposition home health service (06) ==
LOC: ED 14:32 → SUATTDRO 21:50 → ICU 21:50 → 3N 01-17 17:07
PROVIDERS: ATTEND Internal Medicine